=== PATIENT | female | born 1995 | race Caucasian/White ===

== ENCOUNTER 2019-05-24 19:20 | Emergency (ER) | payer OTHER ==
[~2019-05-24] VITALS: Ht 160 cm; Wt 54.5 kg
[2019-05-24 20:15] LABS: CALCIUM 9.2 mg/dL (8.5-10.1); CREATININE 0.8 mg/dL (0.6-1.0); GFR 88.1; POTASSIUM 4.5 mmol/L (3.5-5.1)
[2019-05-24 20:21] LABS: ALBUMIN 3.9 g/dL (3.4-5.0); ALBUMIN/GLOBULIN RATIO 1.2 (1.0-1.7); TOTAL BILIRUBIN 0.3 mg/dL (0.2-1.0); TOTAL PROTEIN 7.2 g/dL (6.4-8.2)
--- NOTE | 2019-05-24 20:29 | RAD ---
KNEE RIGHT 3V DATE: 05/24/2019 7:40 PM INDICATION: Trauma, pain COMPARISON: None. FINDINGS: Bones: There is no evidence of acute fracture or dislocation. Joints: The joint spaces are normal. There is no joint effusion. Miscellaneous: None. IMPRESSION: No evidence of acute fracture. Electronically signed by: Yassine Darby MD (05/24/2019 8:27 PM) [id number]
[2019-05-24 20:44] LABS: BASO # 0.1 x10^3/uL (0.0-0.2); BASO % 1 % (0-3); EOS # 0.2 x10^3/uL (0.0-0.7); EOS % 3 % (0-3); HEMATOCRIT 36.8 % (36.0-47.0); HEMOGLOBIN 12.2 g/dL (12.0-15.5); LYMPH # 1.1 x10^3/uL (1.0-4.8); LYMPH % 18 % (24-48); MEAN CORPUSCULAR HEMOGLOBIN 31 pg (25-35); MEAN CORPUSCULAR HGB CONC 33 g/dL (31-37); MEAN CORPUSCULAR VOLUME 92 fL (79-100); MONO # 0.5 x10^3/uL (0.0-1.1); MONO % 8 % (0-9); NEUT # 4.3 x10^3/uL (1.8-7.7); NEUT % 70 % (31-73); PLATELET COUNT 174 x10^3/uL (140-400); RED CELL DISTRIBUTION WIDTH 14.7 % (11.5-14.5); WHITE BLOOD COUNT 6.1 x10^3/uL (4.0-11.0)
[2019-05-24 21:45] LABS: BILIRUBIN,URINE NEGATIVE (NEG); CLARITY,URINE CLEAR; COLOR,URINE YELLOW; NITRITE,URINE NEGATIVE (NEG); PH,URINE 6.5; PROTEIN,URINE NEGATIVE (NEG-TRACE); UROBILINOGEN,URINE 0.2 mg/dL (0.2 mg/dL)
[2019-05-24 21:56] LABS: BACTERIA,URINE 0 /HPF (0-FEW); RBC,URINE RARE /HPF (0-2); SQUAMOUS EPITHELIAL CELL,UR MOD /LPF; WBC,URINE RARE /HPF (0-4)
[2019-05-24 21:59] LABS: AMPHETAMINE/METHAMPHETAMINE NEG (NEG); BARBITURATES NEG (NEG); BENZODIAZEPINES POS (NEG); CANNABINOIDS POS (NEG); COCAINE NEG (NEG); METHADONE NEG (NEG); OPIATES NEG (NEG); PHENCYCLIDINE NEG (NEG)
--- NOTE | 2019-05-24 22:17 | PHYS DOC ---
Past Medical History Past Medical History: Seizure Additional Past Surgical Histo: Unknown Smoking Status: Unknown if ever smoked Alcohol Use: None Additional Information: Unknown, sedated Social History Narrative: Unknown sedated Adult General Chief Complaint Chief Complaint: SEIZURE HPI HPI Patient is a 23 year old female with history of epilepsy currently off medications due to lack of employment sources who presents with this generalized seizure episode. Patient's is currently staying with friends and Kelin Begum who contacted EMS. On their arrival, the patient had tonic-clonic and was unresponsive. 10 mg of IM Versed given by EMS. Patient sedated/postictal on ED arrival. No seizure activity witnessed. History is limited due to the patient's presentation. [] Review of Systems Review of Systems Review of systems as per history of present illness. All other review symptoms are negative. All other systems were reviewed and found to be within normal limits, except as documented in this note. Allergies Allergies Allergies Coded Allergies Type Severity Reaction Last Updated Verified No Known Drug Allergies 05/24/19 No Physical Exam Physical Exam Constitutional: Obtunded, alerts to tactile stimulation.. [] HENT: Normocephalic, atraumatic, bilateral external ears normal, oropharynx mo ist, nose normal. [] Eyes: PERRLA, EOMI, conjunctiva normal. [] Neck: Normal range of motion. [] Cardiovascular: Bradycardia, regular rhythm. [] Lungs & Thorax: Bilateral breath sounds clear to auscultation. [] Abdomen: Bowel sounds normal, soft. [] Skin: Warm, dry. [] Back: No tenderness. [] Extremities: No tenderness. [] Neurologic: Obtunded, spontaneous movement of extremities. [] Psychologic: Affect normal, judgement normal, mood normal. [] Current Patient Data Vital Signs Vital Signs Date Time Temp Pulse Resp B/P (MAP) Pulse Ox O2 Delivery O2 Flow Rate FiO2 05/24/19 20:44 54 16 98/62 (74) 100 Room Air 05/24/19 19:22 97.6 97.6 Lab Values Laboratory Tests Test 05/24/19 19:55 05/24/19 20:35 05/24/19 21:38 Sodium Level 141 mmol/L (136-145) Potassium Level 4.5 mmol/L (3.5-5.1) Chloride Level 104 mmol/L (98-107) Carbon Dioxide Level 24 mmol/L (21-32) Anion Gap 13 (6-14) Blood Urea Nitrogen 9 mg/dL (7-20) Creatinine 0.8 mg/dL (0.6-1.0) Estimated GFR (Cockcroft-Gault) 88.1 BUN/Creatinine Ratio 11 (6-20) Glucose Level 83 mg/dL (70-99) Calcium Level 9.2 mg/dL (8.5-10.1) Total Bilirubin 0.3 mg/dL (0.2-1.0) Aspartate Amino Transferase (AST) 11 U/L (15-37) L Alanine Aminotransferase (ALT) 17 U/L (14-59) Alkaline Phosphatase 52 U/L (46-116) Troponin I Quantitative < 0.017 ng/mL (0.000-0.055) NC-Fzx-[id number]-Type Natriuretic Peptide 48 pg/mL (0-124) Total Protein 7.2 g/dL (6.4-8.2) Albumin 3.9 g/dL (3.4-5.0) Albumin/Globulin Ratio 1.2 (1.0-1.7) Ethyl Alcohol Level < 10 mg/dL (0-10) White Blood Count 6.1 x10^3/uL (4.0-11.0) Red Blood Count 4.00 x10^6/uL (3.50-5.40) Hemoglobin 12.2 g/dL (12.0-15.5) Hematocrit 36.8 % (36.0-47.0) Mean Corpuscular Volume 92 fL (79-100) Mean Corpuscular Hemoglobin 31 pg (25-35) Mean Corpuscular Hemoglobin Concent 33 g/dL (31-37) Red Cell Distribution Width 14.7 % (11.5-14.5) H Platelet Count 174 x10^3/uL (140-400) Neutrophils (%) (Auto) 70 % (31-73) Lymphocytes (%) (Auto) 18 % (24-48) L Monocytes (%) (Auto) 8 % (0-9) Eosinophils (%) (Auto) 3 % (0-3) Basophils (%) (Auto) 1 % (0-3) Neutrophils # (Auto) 4.3 x10^3/uL (1.8-7.7) Lymphocytes # (Auto) 1.1 x10^3/uL (1.0-4.8) Monocytes # (Auto) 0.5 x10^3/uL (0.0-1.1) Eosinophils # (Auto) 0.2 x10^3/uL (0.0-0.7) Basophils # (Auto) 0.1 x10^3/uL (0.0-0.2) Urine Collection Type U cath Urine Color Yellow Urine Clarity Clear Urine pH 6.5 Urine Specific [place] 1.010 Urine Protein Negative mg/dL (NEG-TRACE) Urine Glucose (UA) Negative mg/dL (NEG) Urine Ketones (Stick) Negative mg/dL (NEG) Urine Blood Negative (NEG) Urine Nitrite Negative (NEG) Urine Bilirubin Negative (NEG) Urine Urobilinogen Dipstick 0.2 mg/dL (0.2 mg/dL) Urine Leukocyte Esterase Negative (NEG) Urine RBC Rare /HPF (0-2) Urine WBC Rare /HPF (0-4) Urine Squamous Epithelial Cells Mod /LPF Urine Transitional Epithelial Cells Few /LPF Urine Bacteria 0 /HPF (0-FEW) Urine Opiates Screen Neg (NEG) Urine Methadone Screen Neg (NEG) Urine Barbiturates Neg (NEG) Urine Phencyclidine Screen Neg (NEG) Urine Amphetamine/Methamphetamine Neg (NEG) Urine Benzodiazepines Screen Pos (NEG) Urine Cocaine Screen Neg (NEG) Urine Cannabinoids Screen Pos (NEG) Urine Ethyl Alcohol Neg (NEG) Laboratory Tests 05/24/19 20:35 Laboratory Tests 05/24/19 19:55 EKG EKG [EKG: reviewed] Radiology/Procedures Radiology/Procedures [] Course & Med Decision Making Course & Med Decision Making Pertinent Labs and Imaging studies reviewed. (See chart for details) [Patient fully recovered from postictal/sedated edition and is a and O 4. Denies recent illness or precipitating seizure event but states she has been off medication for several weeks due to lack of resources. This is the first seizure has had since been off medication. Percocet given prior to ED arrival. Also noted to be bradycardic and mildly hypotensive in ED. She states she has been told that her heart rate is typically in the 50s. She is not on any medications that would contribute to this. Given patient's lack of resources and need for occasions, is recommended that she meets with an outpatient manager social services to assist her in applying for disability. In the meantime, she is encouraged to follow-up with family friends her show resources and doing her current prescriptions. She is discharged home in stable condition. Felicita Disclaimer Felicita Disclaimer This electronic medical record was generated, in whole or in part, using a voice recognition dictation system. Departure Departure Impression: Primary Impression: Noncompliance with medication regimen Additional Impression: Seizure, epileptic Disposition: 01 HOME, SELF-CARE Condition: STABLE Patient Instructions: Seizure, Adult, [id number] Additional Instructions: Please fill prescription seizure medication as soon as possible. Follow up with neurologist for further management of epilepsy and manager social services for assistance with disability application. Problem Qualifiers SHELBY HORTA DO May 24, 2019 22:17
[2019-05-24 22:29] VITALS: BP 85/58
[2019-05-24] MEDS ORDERED: ONDANSETRON PF 4 MG/2 ML VIAL. IV PRN (22:45)
--- NOTE | 2019-05-25 06:44 | EKG ---
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
[2019-05-25] MEDS ORDERED: levETIRAcetam 1,000 MG in IV DEXTROSE 5% 100ML 100 ML IV SCH (09:00)
== END 2019-05-24 22:45 | disposition home or self-care (01) ==
LOC: ER 19:20
DX: G40.909 Epilepsy, unspecified, not intractable, without status epilepticus (principal); M25.561 Pain in right knee; Z91.14 Patient's other noncompliance with medication regimen
CPT/HCPCS: 36415; 73562; 80053; 80307; 81001; 83880; 84484; 85025; 93005; 99285; G0480

== ENCOUNTER 2019-05-25 00:50 | Inpatient (IN) | payer OTHER ==
[~2019-05-25] VITALS: Ht 157.5 cm; Wt 67.5 kg
[2019-05-25] MEDS ORDERED: levETIRAcetam 1,000 MG in IV DEXTROSE 5% 100ML 100 ML IV ONE (01:30)
[2019-05-25] MEDS ORDERED: ONDANSETRON PF 4 MG/2 ML VIAL. IVP ONE (01:30)
[2019-05-25] MEDS ORDERED: MORPHINE SULFATE 4 MG/ML VIAL. IV/SQ ONE (01:30)
[2019-05-25 01:52] LABS: BASO # 0.1 x10^3/uL (0.0-0.2); BASO % 1 % (0-3); EOS # 0.2 x10^3/uL (0.0-0.7); EOS % 2 % (0-3); HEMATOCRIT 40.6 % (36.0-47.0); HEMOGLOBIN 13.1 g/dL (12.0-15.5); LYMPH # 2.9 x10^3/uL (1.0-4.8); LYMPH % 24 % (24-48); MEAN CORPUSCULAR HEMOGLOBIN 30 pg (25-35); MEAN CORPUSCULAR HGB CONC 32 g/dL (31-37); MEAN CORPUSCULAR VOLUME 94 fL (79-100); MONO # 0.9 x10^3/uL (0.0-1.1); MONO % 7 % (0-9); NEUT # 8.1 x10^3/uL (1.8-7.7); NEUT % 66 % (31-73); PLATELET COUNT 186 x10^3/uL (140-400); RED BLOOD COUNT 4.33 x10^6/uL (3.50-5.40); RED CELL DISTRIBUTION WIDTH 14.6 % (11.5-14.5); WHITE BLOOD COUNT 12.2 x10^3/uL (4.0-11.0)
[2019-05-25 01:59] LABS: CALCIUM 9.3 mg/dL (8.5-10.1); CREATININE 0.9 mg/dL (0.6-1.0); GFR 76.9; POTASSIUM 4.4 mmol/L (3.5-5.1)
[2019-05-25 02:04] LABS: ALBUMIN 3.9 g/dL (3.4-5.0); ALBUMIN/GLOBULIN RATIO 1.1 (1.0-1.7); TOTAL BILIRUBIN 0.4 mg/dL (0.2-1.0); TOTAL PROTEIN 7.3 g/dL (6.4-8.2)
--- NOTE | 2019-05-25 03:14 | PHYS DOC ---
Past Medical History Past Medical History: Seizure Additional Past Surgical Histo: Unknown Smoking Status: Unknown if ever smoked Alcohol Use: None Adult General Chief Complaint Chief Complaint: SEIZURE HPI HPI Patient is a 23 year old seen in emergency department earlier this evening for seizure episode of medication noncompliance who presents with witnessed seizure prior to ED arrival. Patient reportedly fell hitting head. Friends contacted EMS. Patient postictal upon EMS arrival. No medications given. Patient was initially postictal in the ED but then had witnessed tonic-clonic seizure. Ativan and Keppra given. Will admit to the hospital service for further evaluation and treatment Review of Systems Review of Systems Review symptoms as per history of present illness. All other review symptoms are negative. All other systems were reviewed and found to be within normal limits, except as documented in this note. Current Medications Current Medications Current Medications Medications (Trade) Dose Ordered Sig/Samuel Start Time Stop Time Status Last Admin Dose Admin Levetiracetam 1000 mg/Dextrose 110 ml @ 440 mls/hr 1X ONCE 05/25/19 01:30 05/25/19 01:44 DC 05/25/19 02:10 440 MLS/HR Lorazepam (Ativan Inj) 2 mg 1X ONCE 05/25/19 02:15 05/25/19 02:16 DC Morphine Sulfate (Morphine Sulfate) 4 mg 1X ONCE 05/25/19 01:30 05/25/19 01:31 DC Ondansetron HCl (Zofran) 4 mg 1X ONCE 05/25/19 01:30 05/25/19 01:31 DC Allergies Allergies Allergies Coded Allergies Type Severity Reaction Last Updated Verified No Known Drug Allergies 05/24/19 No Physical Exam Physical Exam Constitutional: Postictal, unable to follow commands[] HENT: Normocephalic, atraumatic, bilateral external ears normal, oropharynx moist, nose normal. [] Eyes: Pulse dilated, equally round and reactive, no nystagmus. [] Neck: Normal range of motion. [] Cardiovascular:Heart rate regular rhythm, no murmur. [] Lungs & Thorax: Bilateral breath sounds clear to auscultation. [] Abdomen: Bowel sounds normal, soft, no tenderness. [] Skin: Warm, dry, no erythema. [] Extremities: No deformities[] Neurologic: Obtunded, withdrawals to pain. [] Current Patient Data Lab Values Laboratory Tests Test 05/25/19 01:40 White Blood Count 12.2 x10^3/uL (4.0-11.0) H Red Blood Count 4.33 x10^6/uL (3.50-5.40) Hemoglobin 13.1 g/dL (12.0-15.5) Hematocrit 40.6 % (36.0-47.0) Mean Corpuscular Volume 94 fL (79-100) Mean Corpuscular Hemoglobin 30 pg (25-35) Mean Corpuscular Hemoglobin Concent 32 g/dL (31-37) Red Cell Distribution Width 14.6 % (11.5-14.5) H Platelet Count 186 x10^3/uL (140-400) Neutrophils (%) (Auto) 66 % (31-73) Lymphocytes (%) (Auto) 24 % (24-48) Monocytes (%) (Auto) 7 % (0-9) Eosinophils (%) (Auto) 2 % (0-3) Basophils (%) (Auto) 1 % (0-3) Neutrophils # (Auto) 8.1 x10^3/uL (1.8-7.7) H Lymphocytes # (Auto) 2.9 x10^3/uL (1.0-4.8) Monocytes # (Auto) 0.9 x10^3/uL (0.0-1.1) Eosinophils # (Auto) 0.2 x10^3/uL (0.0-0.7) Basophils # (Auto) 0.1 x10^3/uL (0.0-0.2) Maternal Serum HCG Beta Subunit < 1 mIU/mL (0-5) Sodium Level 140 mmol/L (136-145) Potassium Level 4.4 mmol/L (3.5-5.1) Chloride Level 101 mmol/L (98-107) Carbon Dioxide Level 19 mmol/L (21-32) L Anion Gap 20 (6-14) H Blood Urea Nitrogen 9 mg/dL (7-20) Creatinine 0.9 mg/dL (0.6-1.0) Estimated GFR (Cockcroft-Gault) 76.9 BUN/Creatinine Ratio 10 (6-20) Glucose Level 104 mg/dL (70-99) H Calcium Level 9.3 mg/dL (8.5-10.1) Total Bilirubin 0.4 mg/dL (0.2-1.0) Aspartate Amino Transferase (AST) 14 U/L (15-37) L Alanine Aminotransferase (ALT) 14 U/L (14-59) Alkaline Phosphatase 55 U/L (46-116) Total Protein 7.3 g/dL (6.4-8.2) Albumin 3.9 g/dL (3.4-5.0) Albumin/Globulin Ratio 1.1 (1.0-1.7) Laboratory Tests 05/25/19 01:40 Laboratory Tests 05/25/19 01:40 EKG EKG [] Radiology/Procedures Radiology/Procedures [CT head: Pending] Course & Med Decision Making Course & Med Decision Making Pertinent Labs and Imaging studies reviewed. (See chart for details) [Ativan and Keppra given. Patient remains post ictal/sedated, vital signs stable. Will admit to the hospitalist service with neurology consult.] Dragon Disclaimer Dragon Disclaimer This electronic medical record was generated, in whole or in part, using a voice recognition dictation system. Departure Departure Impression: Primary Impression: Seizure Additional Impression: Epilepsy Disposition: 09 ADMITTED INPATIENT Condition: STABLE Referrals: UNKNOWN PCP NAME (PCP) Problem Qualifiers SHELBY HORTA DO May 25, 2019 03:14
[2019-05-25 03:30] VITALS: BP 106/64
--- NOTE | 2019-05-25 03:43 | NUR ---
Pt to room 646 from ED at 0325. Pt postictal and unable to answer admission questions at this time. Bed alarm set, bed rails up x3 and padded, call light within reach. Will complete admission when pt alert.
--- NOTE | 2019-05-25 03:50 | RAD ---
INDICATION: Head injury COMPARISON: None. TECHNIQUE: Axial CT images obtained through the head. One or more of the following individualized dose reduction techniques were utilized for this examination: 1. Automated exposure control; 2. Adjustment of the mA and/or kV according to patient size; 3. Use of iterative reconstruction technique. FINDINGS: Nasal septal deviation to the right. Small amount of fluid in the right maxillary sinus. There are some regions of low density identified which are more than typically seen for the patient's age. This includes within the right frontal region as well as adjacent to the right lateral ventricle. There is also some volume loss in the left temporal region. A definite acute hemorrhage is not seen. Partial visualization of odontogenic disease IMPRESSION: * There are some regions of low density seen which are more than typically seen for the patient's age. This could be secondary to causes such as gliosis from prior injury, chronic small vessel ischemic disease, demyelination or migraine but would consider obtaining an MRI to further assess and ensure that this is not secondary to edema from an acute cause. * There is also volume loss seen in the left temporal region with encephalomalacia. Would correlate with history of insult to the region. Electronically signed by: Aj Leslie MD (05/25/2019 3:47 AM) [id number]
[2019-05-25] MEDS ORDERED: INFLUENZA VAX SCREEN BY RX. MC PRN (06:00)
[2019-05-25] MEDS ORDERED: ACETAMINOPHEN 325 MG TABLET. PO PRN (06:45)
[2019-05-25] MEDS ORDERED: ONDANSETRON PF 4 MG/2 ML VIAL. IV PRN (06:45)
[2019-05-25 07:49] VITALS: BP 99/52
[2019-05-25] MEDS: levETIRAcetam 1,000 MG in IV DEXTROSE 5% 100ML 100 ML IV SCH ×2 (09:08→21:00)
--- NOTE | 2019-05-25 09:50 | PDOC1 ---
History and Physical Date of Admission Date of Admission 05/25/2019 Identification/Chief Complaint Chief Complaint Seizure History of Present Illness History of Present Illness Patient is a 23-year-old female with known seizure disorder who was in her usual state of health until being brought by EMS services to the emergency department. History is from review off ER documentation given that the patient the present time is somnolent. The patient is unable to provide any information she does withdrawal to painful stimuli but is not able to interact with me during my visit. This has been the case ever since he was admitted to the hospital. She has received benzodiazepines in the emergency department since she had a witnessed tonic-clonic Documentation reflects the patient has not been compliant with her medications. Unclear if she has other medical history she is nevertheless wearing a congested not all heart disease awareness bracelet no rashes or lesions were noted on her physical exam patient is being admitted for further evaluation neurology consultation has been requested no needs voiced by nursing staff at the present time ER documentation of been reviewed and copied below: [facility] [id number] [place], [place] [phone] Emergency Room Patient: JARVIS MONTOYA Acct:[id number] Unit: [id number] : 1995 Loc: [address] [place] [address] Room/ Bed: 646-1 Age/Sex: 23 / F ADM Status: ADM IN ADM Date: 05/25/19 Past Medical History Past Medical History: Seizure Additional Past Surgical Histo: Unknown Smoking Status: Unknown if ever smoked Alcohol Use: None Adult General Chief Complaint Chief Complaint: SEIZURE HPI HPI Patient is a 23 year old seen in emergency department earlier this evening for seizure episode of medication noncompliance who presents with witnessed seizure prior to ED arrival. Patient reportedly fell hitting head. Friends contacted [facility] Patient postictal upon EMS arrival. No medications given. Patient was initially postictal in the ED but then had witnessed tonic-clonic seizure. Ativan and Keppra given. Will admit to the hospital service for further evaluation and treatment Past Medical History CENTRAL NERVOUS SYSTEM: Seizure Current Medications Current Medications Current Medications Medications (Trade) Dose Ordered Sig/Samuel Start Time Stop Time Status Last Admin Dose Admin Acetaminophen (Tylenol) 650 mg PRN Q4HRS PRN 05/25/19 06:45 Info (FLU VACCINE SCREEN per RX) 1 each PRN DAILY PRN 05/25/19 06:00 Levetiracetam 1000 mg/Dextrose 110 ml @ 440 mls/hr Q12HR 05/25/19 09:00 05/25/19 09:08 440 MLS/HR Lorazepam (Ativan Inj) 2 mg PRN Q4HRS PRN 05/25/19 06:45 Morphine Sulfate (Morphine Sulfate) 4 mg 1X ONCE 05/25/19 01:30 05/25/19 01:31 DC Ondansetron HCl (Zofran) 4 mg PRN Q4HRS PRN 05/25/19 06:45 Allergies Allergies Allergies Coded Allergies Type Severity Reaction Last Updated Verified No Known Drug Allergies 05/24/19 No ROS Review of System Unable to obtain since the patient is not cooperating Physical Exam Physical Exam Gen.: well-developed well-nourished in no apparent distress Head: Normal shape atraumatic Eyes: Pupils equal reactive to light and accommodation, normal conjunctivae and lids Ears: Normal shape Nose: Normal shape no trauma Mouth: No exudates of the back of throat no thrush no lesions Neck: Supple no JVD no carotid bruit or lymphadenopathy no thyromegaly Chest: Lungs clear to auscultation with good inspiratory effort no crackles rales or rhonchi Cardiovascular: S1-S2 regular rhythm no murmurs gallops or rubs Abdomen: Bowel sounds present soft nontender no hepatosplenomegaly appreciated sign Extremities: No clubbing no cyanosis no edema peripheral pulses palpated bilaterally Neurological: Somnolent cranial nerves II-12 grossly intact no motor or sensory deficits appreciated Psych: Unable to assess Vitals Vitals Vital Signs Date Time Temp Pulse Resp B/P (MAP) Pulse Ox O2 Delivery O2 Flow Rate FiO2 05/25/19 07:49 97.6 61 16 99/52 (68) 97 Room Air 97.6 05/25/19 01:55 2.0 Labs Labs Laboratory Tests Test 05/25/19 01:40 White Blood Count 12.2 x10^3/uL (4.0-11.0) Red Blood Count 4.33 x10^6/uL (3.50-5.40) Hemoglobin 13.1 g/dL (12.0-15.5) Hematocrit 40.6 % (36.0-47.0) Mean Corpuscular Volume 94 fL (79-100) Mean Corpuscular Hemoglobin 30 pg (25-35) Mean Corpuscular Hemoglobin Concent 32 g/dL (31-37) Red Cell Distribution Width 14.6 % (11.5-14.5) Platelet Count 186 x10^3/uL (140-400) Neutrophils (%) (Auto) 66 % (31-73) Lymphocytes (%) (Auto) 24 % (24-48) Monocytes (%) (Auto) 7 % (0-9) Eosinophils (%) (Auto) 2 % (0-3) Basophils (%) (Auto) 1 % (0-3) Neutrophils # (Auto) 8.1 x10^3/uL (1.8-7.7) Lymphocytes # (Auto) 2.9 x10^3/uL (1.0-4.8) Monocytes # (Auto) 0.9 x10^3/uL (0.0-1.1) Eosinophils # (Auto) 0.2 x10^3/uL (0.0-0.7) Basophils # (Auto) 0.1 x10^3/uL (0.0-0.2) Maternal Serum HCG Beta Subunit < 1 mIU/mL (0-5) Sodium Level 140 mmol/L (136-145) Potassium Level 4.4 mmol/L (3.5-5.1) Chloride Level 101 mmol/L (98-107) Carbon Dioxide Level 19 mmol/L (21-32) Anion Gap 20 (6-14) Blood Urea Nitrogen 9 mg/dL (7-20) Creatinine 0.9 mg/dL (0.6-1.0) Estimated GFR (Cockcroft-Gault) 76.9 BUN/Creatinine Ratio 10 (6-20) Glucose Level 104 mg/dL (70-99) Calcium Level 9.3 mg/dL (8.5-10.1) Total Bilirubin 0.4 mg/dL (0.2-1.0) Aspartate Amino Transf (AST/SGOT) 14 U/L (15-37) Alanine Aminotransferase (ALT/SGPT) 14 U/L (14-59) Alkaline Phosphatase 55 U/L (46-116) Total Protein 7.3 g/dL (6.4-8.2) Albumin 3.9 g/dL (3.4-5.0) Albumin/Globulin Ratio 1.1 (1.0-1.7) Laboratory Tests Test 05/25/19 01:40 White Blood Count 12.2 x10^3/uL (4.0-11.0) Red Blood Count 4.33 x10^6/uL (3.50-5.40) Hemoglobin 13.1 g/dL (12.0-15.5) Hematocrit 40.6 % (36.0-47.0) Mean Corpuscular Volume 94 fL (79-100) Mean Corpuscular Hemoglobin 30 pg (25-35) Mean Corpuscular Hemoglobin Concent 32 g/dL (31-37) Red Cell Distribution Width 14.6 % (11.5-14.5) Platelet Count 186 x10^3/uL (140-400) Neutrophils (%) (Auto) 66 % (31-73) Lymphocytes (%) (Auto) 24 % (24-48) Monocytes (%) (Auto) 7 % (0-9) Eosinophils (%) (Auto) 2 % (0-3) Basophils (%) (Auto) 1 % (0-3) Neutrophils # (Auto) 8.1 x10^3/uL (1.8-7.7) Lymphocytes # (Auto) 2.9 x10^3/uL (1.0-4.8) Monocytes # (Auto) 0.9 x10^3/uL (0.0-1.1) Eosinophils # (Auto) 0.2 x10^3/uL (0.0-0.7) Basophils # (Auto) 0.1 x10^3/uL (0.0-0.2) Maternal Serum HCG Beta Subunit < 1 mIU/mL (0-5) Sodium Level 140 mmol/L (136-145) Potassium Level 4.4 mmol/L (3.5-5.1) Chloride Level 101 mmol/L (98-107) Carbon Dioxide Level 19 mmol/L (21-32) Anion Gap 20 (6-14) Blood Urea Nitrogen 9 mg/dL (7-20) Creatinine 0.9 mg/dL (0.6-1.0) Estimated GFR (Cockcroft-Gault) 76.9 BUN/Creatinine Ratio 10 (6-20) Glucose Level 104 mg/dL (70-99) Calcium Level 9.3 mg/dL (8.5-10.1) Total Bilirubin 0.4 mg/dL (0.2-1.0) Aspartate Amino Transf (AST/SGOT) 14 U/L (15-37) Alanine Aminotransferase (ALT/SGPT) 14 U/L (14-59) Alkaline Phosphatase 55 U/L (46-116) Total Protein 7.3 g/dL (6.4-8.2) Albumin 3.9 g/dL (3.4-5.0) Albumin/Globulin Ratio 1.1 (1.0-1.7) VTE Prophylaxis Ordered VTE Prophylaxis Devices: Yes VTE Pharmacological Prophylaxi: No Assessment/Plan Assessment/Plan Seizure disorder After mental status secondary to the above Encephalopathy most likely secondary to benzodiazepines, we'll continue to follow response Leukocytosis which seems reactive CT scan report reviewed we will follow recommendations from neurology engineering consultant regarding these findings Plan Seizure precautions Joseph has been given Consult neurology Labs in the a.m. Reassess in the a.m. DVT prophylaxis with SCDs Further recommendations based on the clinical course CHARO COPELAND MD May 25, 2019 09:50
[2019-05-25 11:41] VITALS: BP 108/52
[2019-05-25 12:11] LABS: AMPHETAMINE/METHAMPHETAMINE NEG (NEG); BARBITURATES NEG (NEG); BENZODIAZEPINES POS (NEG); CANNABINOIDS POS (NEG); COCAINE NEG (NEG); METHADONE NEG (NEG); OPIATES NEG (NEG); PHENCYCLIDINE NEG (NEG)
--- NOTE | 2019-05-25 13:10 | NUR ---
SS following for discharge planning. SS reviewed pt chart. Pt is from home and is currently on room air. SS will continue to follow for discharge planning.
[2019-05-25 15:26] VITALS: BP 115/63
--- NOTE | 2019-05-25 16:22 | PDOC2 ---
NEUROLOGY CONSULT Date of Admission Date of Admission DATE: 05/25/19 TIME: 16:10 Reason for Consult Reason for Consult: IMPRESSION: Seizure. 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 Marijuana positive. RECOMMENDATIONS/PLAN: EEG. Brain MRI w/wo contrast with seizure protocol. Lab: see orders, including test. Continue Keppra. Seizure precaution. No driving x 6 months anytime after a seizure. History of Present Illness This is a 23-year-old female with known history of seizure reportedly since age 7. She was said in her usual state of health until being brought by EMS services to the emergency department due to seizure. She was somnolent. She has received Ativan and keppra in the emergency department since she had a witnessed tonic- clonic seizure. Documentation reflects the patient has not been compliant with her medications. Neurology consultation is requested. Past Medical History CENTRAL NERVOUS SYSTEM: Seizure PAST SURGERY HISTORY: No major surgery recently. ALLERGY: Unknown MEDICATIONS: Refer to [facility] HISTORY: Non contributory. SOCIAL HISTORY: Denies smoking, drinking, and illicit drug use, but marijuana was positive in system. REVIEW OF SYSTEMS: Constitutional: No malnutrition, weight loss, cachexia. Head: No traumatic brain or head injury. Skin: No edema, or rash. Ear: No infection. Eyes: No vision loss or color blindness. Nose: No bleeding or purulent discharges. Hearing: No hearing decrease. Neck: No injury. Breast: No history of cancer, masses,or discharges. Cardiac: No NM, arrhythmia. Pulmonary: No COPD. GI: No GI ulcer, GI bleeding, GERD. Urinary/genital: No dysuria, incontinence, urinary retention. Endocrinologic: No cousin face, craniofacial dysmorphism, polydactyly. Skeletomuscular: No muscular atrophy, deformity. Neurological: see HP. Psychiatric: Denies drug use/abuse. Otherwise, not [id number] review of systems. PHYSICAL EXAMINATION: General appearance is in subacute distress. HEENT: Normocephalic and nontraumatic. Eyes, nose, ears, and throat are unremarkable. Neck is supple. No lymphadenopathy. No crepitus. Cardiovascular: S1, S2, regular rate and rhythm. Pulmonary: Clear to auscultation bilaterally. Abdomen: Bowel sounds are positive. Abdomen is soft, nontender, and nondistended. Extremities: No rash, lesions, or edema. No restriction of range of motion NEUROLOGICAL EXAMINATION: Awake. Oriented to time, place and person, but reactions slow. PERRL. EOMI. CN: no focal findings. Muscle tone: within normal. Muscle strength: 5 DTR: 2 Plantar reflex: Flexor response bilaterally Gait: not examined while in bed. Sensory exam: no abnormal findings. No cerebellar signs elicited. F-T-N test accurate. Current Medications Current Medications Current Medications Lorazepam (Ativan Inj) 1 mg 1X ONCE IVP ; Start 05/25/19 at 01:30; Stop 05/25/19 at 02:14; Status DC Levetiracetam 1000 mg/Dextrose 110 ml @ 440 mls/hr 1X ONCE IV Last administered on 05/25/19at 02:10; Start 05/25/19 at 01:30; Stop 05/25/19 at 01:44; Status DC Morphine Sulfate (Morphine Sulfate) 4 mg 1X ONCE IV/SQ ; Start 05/25/19 at 01:30; Stop 05/25/19 at 01:31; Status DC Ondansetron HCl (Zofran) 4 mg 1X ONCE IVP ; Start 05/25/19 at 01:30; Stop 05/25/19 at 01:31; Status DC Lorazepam (Ativan Inj) 2 mg 1X ONCE IVP Last administered on 05/25/19at 02:16; Start 05/25/19 at 02:15; Stop 05/25/19 at 02:16; Status DC Lorazepam (Ativan Inj) 2 mg 1X ONCE IVP ; Start 05/25/19 at 02:15; Stop 05/25/19 at 02:16; Status DC Levetiracetam 1000 mg/Dextrose 110 ml @ 440 mls/hr Q12HR IV Last administered on 05/25/19at 09:08; Start 05/25/19 at 09:00 Lorazepam (Ativan Inj) 2 mg PRN Q4HRS PRN IVP ANXIETY / AGITATION Last administered on 05/25/19at 14:20; Start 05/25/19 at 02:45 Info (FLU VACCINE SCREEN per RX) 1 each PRN DAILY PRN MC SEE COMMENTS; Start 05/25/19 at 06:00; Status Cancel Ondansetron HCl (Zofran) 4 mg PRN Q4HRS PRN IV NAUSEA/VOMITING 1ST CHOICE; Start 05/25/19 at 06:45 Acetaminophen (Tylenol) 650 mg PRN Q4HRS PRN PO TEMP OVER 100.4F OR MILD PAIN; Start 05/25/19 at 06:45 Lorazepam (Ativan Inj) 2 mg PRN Q4HRS PRN IV seizure only; Start 05/25/19 at 06:45 Influenza Virus Vaccine Quadrival (Afluria Quad 2019-20 (3yr Up) Syringe) 0.5 ml ONCE ONCE VAX IM ; Start 05/26/19 at 09:00; Stop 05/26/19 at 09:01 Allergies Allergies: Allergies Coded Allergies Type Severity Reaction Last Updated Verified No Known Drug Allergies 05/24/19 No ROS Review of System The patient denies any associated fevers, chills, headache, ear pain, rhinorrhea, sore throat, stiff neck, productive cough, chest pain, shortness of breath, back or flank pain, abdominal pain, nausea, vomiting, diarrhea, constipation, dysuria, rash, numbness, weakness, tingling, incontinence, difficulty ambulating, or diaphoresis. Physical Exam Physical Exam General: Well developed, well nourished, no acute distress, well appearing HEENT: Pupils equally round and reactive to light, EOMI, no discharge, normal conjunctiva Neck: Supple, no nuchal rigidity, no JVD, trachea midline, no tenderness Cardiac: RRR, no murmurs, no gallops, no rubs Chest/Lungs: CTAB, no wheeze, no rhonchi, no crackles Abdomen: soft, non-distended, no guarding, no peritoneal signs, non-tender Back: No tenderness Extremities: no edema, pulses intact, non-tender,capillary refill <3 sec bilateral upper and lower extremities, Neuro: Alert and oriented x 4, no focal deficits, normal speech Vitals Vitals: Vital Signs Date Time Temp Pulse Resp B/P (MAP) Pulse Ox O2 Delivery O2 Flow Rate FiO2 05/25/19 15:26 97.9 72 18 115/63 (80) 99 Room Air 97.9 05/25/19 01:55 2.0 Labs Labs Laboratory Tests Test 05/25/19 01:40 05/25/19 11:35 White Blood Count 12.2 x10^3/uL (4.0-11.0) Red Blood Count 4.33 x10^6/uL (3.50-5.40) Hemoglobin 13.1 g/dL (12.0-15.5) Hematocrit 40.6 % (36.0-47.0) Mean Corpuscular Volume 94 fL (79-100) Mean Corpuscular Hemoglobin 30 pg (25-35) Mean Corpuscular Hemoglobin Concent 32 g/dL (31-37) Red Cell Distribution Width 14.6 % (11.5-14.5) Platelet Count 186 x10^3/uL (140-400) Neutrophils (%) (Auto) 66 % (31-73) Lymphocytes (%) (Auto) 24 % (24-48) Monocytes (%) (Auto) 7 % (0-9) Eosinophils (%) (Auto) 2 % (0-3) Basophils (%) (Auto) 1 % (0-3) Neutrophils # (Auto) 8.1 x10^3/uL (1.8-7.7) Lymphocytes # (Auto) 2.9 x10^3/uL (1.0-4.8) Monocytes # (Auto) 0.9 x10^3/uL (0.0-1.1) Eosinophils # (Auto) 0.2 x10^3/uL (0.0-0.7) Basophils # (Auto) 0.1 x10^3/uL (0.0-0.2) Maternal Serum HCG Beta Subunit < 1 mIU/mL (0-5) Sodium Level 140 mmol/L (136-145) Potassium Level 4.4 mmol/L (3.5-5.1) Chloride Level 101 mmol/L (98-107) Carbon Dioxide Level 19 mmol/L (21-32) Anion Gap 20 (6-14) Blood Urea Nitrogen 9 mg/dL (7-20) Creatinine 0.9 mg/dL (0.6-1.0) Estimated GFR (Cockcroft-Gault) 76.9 BUN/Creatinine Ratio 10 (6-20) Glucose Level 104 mg/dL (70-99) Calcium Level 9.3 mg/dL (8.5-10.1) Total Bilirubin 0.4 mg/dL (0.2-1.0) Aspartate Amino Transf (AST/SGOT) 14 U/L (15-37) Alanine Aminotransferase (ALT/SGPT) 14 U/L (14-59) Alkaline Phosphatase 55 U/L (46-116) Total Protein 7.3 g/dL (6.4-8.2) Albumin 3.9 g/dL (3.4-5.0) Albumin/Globulin Ratio 1.1 (1.0-1.7) Tumor Marker HCG <1 mIU/mL (.) Urine Opiates Screen Neg (NEG) Urine Methadone Screen Neg (NEG) Urine Barbiturates Neg (NEG) Urine Phencyclidine Screen Neg (NEG) Urine Amphetamine/Methamphetamine Neg (NEG) Urine Benzodiazepines Screen Pos (NEG) Urine Cocaine Screen Neg (NEG) Urine Cannabinoids Screen Pos (NEG) Urine Ethyl Alcohol Neg (NEG) Laboratory Tests Test 05/25/19 01:40 05/25/19 11:35 White Blood Count 12.2 x10^3/uL (4.0-11.0) Red Blood Count 4.33 x10^6/uL (3.50-5.40) Hemoglobin 13.1 g/dL (12.0-15.5) Hematocrit 40.6 % (36.0-47.0) Mean Corpuscular Volume 94 fL (79-100) Mean Corpuscular Hemoglobin 30 pg (25-35) Mean Corpuscular Hemoglobin Concent 32 g/dL (31-37) Red Cell Distribution Width 14.6 % (11.5-14.5) Platelet Count 186 x10^3/uL (140-400) Neutrophils (%) (Auto) 66 % (31-73) Lymphocytes (%) (Auto) 24 % (24-48) Monocytes (%) (Auto) 7 % (0-9) Eosinophils (%) (Auto) 2 % (0-3) Basophils (%) (Auto) 1 % (0-3) Neutrophils # (Auto) 8.1 x10^3/uL (1.8-7.7) Lymphocytes # (Auto) 2.9 x10^3/uL (1.0-4.8) Monocytes # (Auto) 0.9 x10^3/uL (0.0-1.1) Eosinophils # (Auto) 0.2 x10^3/uL (0.0-0.7) Basophils # (Auto) 0.1 x10^3/uL (0.0-0.2) Maternal Serum HCG Beta Subunit < 1 mIU/mL (0-5) Sodium Level 140 mmol/L (136-145) Potassium Level 4.4 mmol/L (3.5-5.1) Chloride Level 101 mmol/L (98-107) Carbon Dioxide Level 19 mmol/L (21-32) Anion Gap 20 (6-14) Blood Urea Nitrogen 9 mg/dL (7-20) Creatinine 0.9 mg/dL (0.6-1.0) Estimated GFR (Cockcroft-Gault) 76.9 BUN/Creatinine Ratio 10 (6-20) Glucose Level 104 mg/dL (70-99) Calcium Level 9.3 mg/dL (8.5-10.1) Total Bilirubin 0.4 mg/dL (0.2-1.0) Aspartate Amino Transf (AST/SGOT) 14 U/L (15-37) Alanine Aminotransferase (ALT/SGPT) 14 U/L (14-59) Alkaline Phosphatase 55 U/L (46-116) Total Protein 7.3 g/dL (6.4-8.2) Albumin 3.9 g/dL (3.4-5.0) Albumin/Globulin Ratio 1.1 (1.0-1.7) Tumor Marker HCG <1 mIU/mL (.) Urine Opiates Screen Neg (NEG) Urine Methadone Screen Neg (NEG) Urine Barbiturates Neg (NEG) Urine Phencyclidine Screen Neg (NEG) Urine Amphetamine/Methamphetamine Neg (NEG) Urine Benzodiazepines Screen Pos (NEG) Urine Cocaine Screen Neg (NEG) Urine Cannabinoids Screen Pos (NEG) Urine Ethyl Alcohol Neg (NEG) LEOPOLDO CRANE MD May 25, 2019 16:22
[2019-05-25 19:35] VITALS: BP 118/70
[2019-05-25 23:58] VITALS: BP 127/73
[2019-05-26 07:53] VITALS: BP 94/51
[2019-05-26] MEDS ORDERED: LAMO200T3 PO (08:35)
[2019-05-26] MEDS ORDERED: OXCA300T19 PO (08:35)
[2019-05-26] MEDS ORDERED: LAMO25TA5 PO (08:35)
[2019-05-26] MEDS ORDERED: LORA0.5T96 PO ×2 (08:35→12:15)
[2019-05-26] MEDS ORDERED: PROP40TA PO (08:35)
[2019-05-26] MEDS ORDERED: FLUO10CA14 PO (08:35)
[2019-05-26 08:50] LABS: CREATININE 0.6 mg/dL (0.6-1.0); GFR 122.8
[2019-05-26 08:52] LABS: BASO % 1 % (0-3); EOS # 0.2 x10^3/uL (0.0-0.7); EOS % 3 % (0-3); HEMATOCRIT 37.8 % (36.0-47.0); HEMOGLOBIN 12.6 g/dL (12.0-15.5); LYMPH # 1.7 x10^3/uL (1.0-4.8); LYMPH % 27 % (24-48); MEAN CORPUSCULAR HEMOGLOBIN 31 pg (25-35); MEAN CORPUSCULAR HGB CONC 33 g/dL (31-37); MEAN CORPUSCULAR VOLUME 92 fL (79-100); MONO # 0.6 x10^3/uL (0.0-1.1); MONO % 9 % (0-9); NEUT # 3.8 x10^3/uL (1.8-7.7); NEUT % 60 % (31-73); PLATELET COUNT 186 x10^3/uL (140-400); RED BLOOD COUNT 4.11 x10^6/uL (3.50-5.40); RED CELL DISTRIBUTION WIDTH 14.8 % (11.5-14.5); WHITE BLOOD COUNT 6.3 x10^3/uL (4.0-11.0)
[2019-05-26] MEDS: levETIRAcetam 1,000 MG in IV DEXTROSE 5% 100ML 100 ML IV SCH (09:00)
[2019-05-26] MEDS ORDERED: FLU VAX QS 2019-20 (36MOS+)/PF 0.5 ML SYRINGE. VAX IM ONE (09:00)
[2019-05-26 11:36] VITALS: BP 118/67
[2019-05-26 11:51] LABS: U PREG PATIENT NEGATIVE (NEG)
--- NOTE | 2019-05-26 12:21 | PDOC3 ---
Discharge Summary Visit Information Date of Admission: May 25, 2019 Date of Discharge: May 26, 2019 Brief Hospital Course Allergies Allergies Coded Allergies Type Severity Reaction Last Updated Verified No Known Drug Allergies 05/24/19 No Vital Signs Vital Signs Date Time Temp Pulse Resp B/P (MAP) Pulse Ox O2 Delivery O2 Flow Rate FiO2 05/26/19 11:36 97.4 66 16 118/67 (84) 98 Room Air 97.4 Lab Results Laboratory Tests Test 05/25/19 01:40 05/25/19 11:35 05/26/19 07:31 05/26/19 11:15 White Blood Count 12.2 x10^3/uL (4.0-11.0) 6.3 x10^3/uL (4.0-11.0) Red Blood Count 4.33 x10^6/uL (3.50-5.40) 4.11 x10^6/uL (3.50-5.40) Hemoglobin 13.1 g/dL (12.0-15.5) 12.6 g/dL (12.0-15.5) Hematocrit 40.6 % (36.0-47.0) 37.8 % (36.0-47.0) Mean Corpuscular Volume 94 fL (79-100) 92 fL (79-100) Mean Corpuscular Hemoglobin 30 pg (25-35) 31 pg (25-35) Mean Corpuscular Hemoglobin Concent 32 g/dL (31-37) 33 g/dL (31-37) Red Cell Distribution Width 14.6 % (11.5-14.5) 14.8 % (11.5-14.5) Platelet Count 186 x10^3/uL (140-400) 186 x10^3/uL (140-400) Neutrophils (%) (Auto) 66 % (31-73) 60 % (31-73) Lymphocytes (%) (Auto) 24 % (24-48) 27 % (24-48) Monocytes (%) (Auto) 7 % (0-9) 9 % (0-9) Eosinophils (%) (Auto) 2 % (0-3) 3 % (0-3) Basophils (%) (Auto) 1 % (0-3) 1 % (0-3) Neutrophils # (Auto) 8.1 x10^3/uL (1.8-7.7) 3.8 x10^3/uL (1.8-7.7) Lymphocytes # (Auto) 2.9 x10^3/uL (1.0-4.8) 1.7 x10^3/uL (1.0-4.8) Monocytes # (Auto) 0.9 x10^3/uL (0.0-1.1) 0.6 x10^3/uL (0.0-1.1) Eosinophils # (Auto) 0.2 x10^3/uL (0.0-0.7) 0.2 x10^3/uL (0.0-0.7) Basophils # (Auto) 0.1 x10^3/uL (0.0-0.2) 0.0 x10^3/uL (0.0-0.2) Maternal Serum HCG Beta Subunit < 1 mIU/mL (0-5) Sodium Level 140 mmol/L (136-145) 142 mmol/L (136-145) Potassium Level 4.4 mmol/L (3.5-5.1) 4.0 mmol/L (3.5-5.1) Chloride Level 101 mmol/L (98-107) 105 mmol/L (98-107) Carbon Dioxide Level 19 mmol/L (21-32) 30 mmol/L (21-32) Anion Gap 20 (6-14) 7 (6-14) Blood Urea Nitrogen 9 mg/dL (7-20) 6 mg/dL (7-20) Creatinine 0.9 mg/dL (0.6-1.0) 0.6 mg/dL (0.6-1.0) Estimated GFR (Cockcroft-Gault) 76.9 122.8 BUN/Creatinine Ratio 10 (6-20) Glucose Level 104 mg/dL (70-99) 82 mg/dL (70-99) Calcium Level 9.3 mg/dL (8.5-10.1) 9.0 mg/dL (8.5-10.1) Total Bilirubin 0.4 mg/dL (0.2-1.0) Aspartate Amino Transf (AST/SGOT) 14 U/L (15-37) Alanine Aminotransferase (ALT/SGPT) 14 U/L (14-59) Alkaline Phosphatase 55 U/L (46-116) Total Protein 7.3 g/dL (6.4-8.2) Albumin 3.9 g/dL (3.4-5.0) Albumin/Globulin Ratio 1.1 (1.0-1.7) Tumor Marker HCG <1 mIU/mL (.) Urine Opiates Screen Neg (NEG) Urine Methadone Screen Neg (NEG) Urine Barbiturates Neg (NEG) Urine Phencyclidine Screen Neg (NEG) Urine Amphetamine/Methamphetamine Neg (NEG) Urine Benzodiazepines Screen Pos (NEG) Urine Cocaine Screen Neg (NEG) Urine Cannabinoids Screen Pos (NEG) Urine Ethyl Alcohol Neg (NEG) Urine Test Negative (NEG) Laboratory Tests Test 05/26/19 07:31 05/26/19 11:15 White Blood Count 6.3 x10^3/uL (4.0-11.0) Red Blood Count 4.11 x10^6/uL (3.50-5.40) Hemoglobin 12.6 g/dL (12.0-15.5) Hematocrit 37.8 % (36.0-47.0) Mean Corpuscular Volume 92 fL (79-100) Mean Corpuscular Hemoglobin 31 pg (25-35) Mean Corpuscular Hemoglobin Concent 33 g/dL (31-37) Red Cell Distribution Width 14.8 % (11.5-14.5) Platelet Count 186 x10^3/uL (140-400) Neutrophils (%) (Auto) 60 % (31-73) Lymphocytes (%) (Auto) 27 % (24-48) Monocytes (%) (Auto) 9 % (0-9) Eosinophils (%) (Auto) 3 % (0-3) Basophils (%) (Auto) 1 % (0-3) Neutrophils # (Auto) 3.8 x10^3/uL (1.8-7.7) Lymphocytes # (Auto) 1.7 x10^3/uL (1.0-4.8) Monocytes # (Auto) 0.6 x10^3/uL (0.0-1.1) Eosinophils # (Auto) 0.2 x10^3/uL (0.0-0.7) Basophils # (Auto) 0.0 x10^3/uL (0.0-0.2) Sodium Level 142 mmol/L (136-145) Potassium Level 4.0 mmol/L (3.5-5.1) Chloride Level 105 mmol/L (98-107) Carbon Dioxide Level 30 mmol/L (21-32) Anion Gap 7 (6-14) Blood Urea Nitrogen 6 mg/dL (7-20) Creatinine 0.6 mg/dL (0.6-1.0) Estimated GFR (Cockcroft-Gault) 122.8 Glucose Level 82 mg/dL (70-99) Calcium Level 9.0 mg/dL (8.5-10.1) Urine Test Negative (NEG) Brief Hospital Course Ms. Natarajan is a 23 old female with known history of seizure disorder who was brought by EMS after presenting seizure-like activity while visiting family in the neighborhood. Patient usually has her care at [facility]. Apparently the patient unfortunately had not been able to renew her prescriptions and had been off her medications for at least a week. She was treated with Ativan in the emergency department and she was restarted on her home medications while inpatient. The patient was seen by neurology who recommended a brain MRI without contrast and with contrast. At the time of this note the brain MRI has not been performed. The patient does not exhibit any neurological deficits did not percent further seizure-like activity. Recommendations by our professional benefits sales consultant was to continue with Keppra nevertheless patient had been stable she relates to me for several years without a seizure episode. She has an appointment follow-up as reported by the patient but I have encourage her to call them and have a follow-up appointment within the next week if possible. She is in good spirits to be dismissed home and I have provided with refill of her prescriptions in order for her to stay seizure- free. Recommendation from neurologist was to not drive for next 6 months Signs and symptoms of alarm discussed prior to dismissal all concerns address to the best my abilities Gen.: well-developed well-nourished in no apparent distress Head: Normal shape atraumatic Eyes: Pupils equal reactive to light and accommodation, normal conjunctivae and lids Ears: Normal shape Nose: Normal shape no trauma Mouth: No exudates of the back of throat no thrush no lesions Neck: Supple no JVD no carotid bruit or lymphadenopathy no thyromegaly Chest: Lungs clear to auscultation with good inspiratory effort no crackles rales or rhonchi Cardiovascular: S1-S2 regular rhythm no murmurs gallops or rubs Abdomen: Bowel sounds present soft nontender no hepatosplenomegaly appreciated sign Extremities: No clubbing no cyanosis no edema peripheral pulses palpated bilaterally Neurological: Alert awake oriented in person time place and situation, cranial nerves II through XII intact, no motor or sensory deficits appreciated Psych: Appropriate mood, cooperative Discharge Information Condition at Discharge: Improved Follow Up: Weeks Disposition/Orders: D/C to Home Scheduled Fluoxetine Hcl (Fluoxetine Hcl) 10 Mg Capsule, 1 CAP PO DAILY for depression for 90 Days, #90 Ref 2 (Reported) Entered as Reported by: SURESH LIMA RN on 05/26/19834 Last Action: New Order on 05/26/19834 by SURESH LIMA RN Lamotrigine (Lamictal) 200 Mg Tablet, 200 MG PO BID for seizures for 90 Days, #180 (Reported) Entered as Reported by: SURESH LIMA RN on 05/26/19834 Last Taken: Unknown Dose on 05/13/19 Last Action: New Order on 05/26/19834 by SURESH LIMA RN Lamotrigine (Lamictal) 25 Mg Tablet, 1 TAB PO BID for seizures for 90 Days, #180 Ref 1 (Reported) Entered as Reported by: SURESH LIMA RN on 05/26/19834 Last Taken: Unknown Dose on 05/13/19 Last Action: New Order on 05/26/19834 by SURESH LIMA RN Lorazepam (Ativan) 0.5 Mg Tablet, 0.5 MG PO HS for agitation for 30 Days, #30 Prescribed by: CHARO COPELAND MD on 05/26/19 1215 Oxcarbazepine (Oxcarbazepine) 300 Mg Tablet, 1 TAB PO BID for seizures for 30 Days, #60 Ref 0 (Reported) Entered as Reported by: SURESH LIMA RN on 05/26/19834 Last Taken: Unknown Dose on 05/13/19 Last Action: New Order on 05/26/19834 by SURESH LIMA RN Propranolol Hcl (Propranolol Hcl) 40 Mg Tablet, 1 TAB PO BID for heart papitations for 90 Days, #180 Ref 5 (Reported) Entered as Reported by: SURESH LIMA RN on 05/26/19834 Last Taken: Unknown Dose on 05/13/19 Last Action: New Order on 05/26/19834 by LUIS TIDWELL HECTOR M MD May 26, 2019 12:21
[2019-05-26 15:08] VITALS: BP 122/57
--- NOTE | 2019-05-26 15:49 | NUR ---
Discharge Note: JARVIS MONTOYA Discharge instructions and discharge home medications reviewed with Patient and a copy given. All questions have been answered and understanding verbalized. The following instructions and handouts were given: The patient was advised to follow-up with her Neurologist at . Discontinued lines and drains: The patient pulled out the IV overnight. No IV lines were replaced. Catheter tip was intact. Patient discharged to home with self care via [facility].
--- NOTE | 2019-05-26 16:01 | PDOC ---
PROGRESS NOTES Assessment Assessment Seizure. 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 Marijuana positive. RECOMMENDATIONS/PLAN: EEG, out patient [place]. Brain MRI w/wo contrast with seizure protocol, cancelled due to her stimulator. Continue Keppra. Seizure precaution. No driving x 6 months anytime after a seizure. FU with her neurologist in . FU with PCP. History of Present Illness This is a 23-year-old female with known history of seizure reportedly since age 7. She was said in her usual state of health until being brought by EMS services to the emergency department due to seizure. She was somnolent. She has received Ativan and keppra in the emergency department since she had a witnessed tonic- clonic seizure. Documentation reflects the patient has not been compliant with her medications. Neurology consultation is requested. 05/26/19: No seizures since here. Past Medical History CENTRAL NERVOUS SYSTEM: Seizure PAST SURGERY HISTORY: No major surgery recently. ALLERGY: Unknown MEDICATIONS: Refer to [facility] FAMILY HISTORY: Non contributory. SOCIAL HISTORY: Denies smoking, drinking, and illicit drug use, but marijuana was positive in system. REVIEW OF SYSTEMS: Constitutional: No malnutrition, weight loss, cachexia. Head: No traumatic brain or head injury. Skin: No edema, or rash. Ear: No infection. Eyes: No vision loss or color blindness. Nose: No bleeding or purulent discharges. Hearing: No hearing decrease. Neck: No injury. Breast: No history of cancer, masses,or discharges. Cardiac: No [place], arrhythmia. Pulmonary: No COPD. GI: No GI ulcer, GI bleeding, GERD. Urinary/genital: No dysuria, incontinence, urinary retention. Endocrinologic: No cousin face, craniofacial dysmorphism, polydactyly. Skeletomuscular: No muscular atrophy, deformity. Neurological: see HP. Psychiatric: Denies drug use/abuse. Otherwise, not [id number] review of systems. PHYSICAL EXAMINATION: General appearance is in no acute distress. HEENT: Normocephalic and nontraumatic. Eyes, nose, ears, and throat are unremarkable. Neck is supple. No lymphadenopathy. No crepitus. Cardiovascular: S1, S2, regular rate and rhythm. Pulmonary: Clear to auscultation bilaterally. Abdomen: Bowel sounds are positive. Abdomen is soft, nontender, and nondistended. Extremities: No rash, lesions, or edema. No restriction of range of motion NEUROLOGICAL EXAMINATION: Awake. Oriented to time, place and person, but reactions slow. PERRL. EOMI. CN: no focal findings. Muscle tone: within normal. Muscle strength: 5 DTR: 2 Plantar reflex: Flexor response bilaterally Gait: Normal. Sensory exam: no abnormal findings. No cerebellar signs elicited. F-T-N test accurate. Objective Objective Vital Signs Date Time Temp Pulse Resp B/P (MAP) Pulse Ox O2 Delivery O2 Flow Rate FiO2 05/26/19 15:08 97.9 68 18 122/57 (78) 99 Room Air 97.9 Intake and Output 05/26/19 07:00 Intake Total 1150 ml Output Total 1 ml Balance 1149 ml Intake Oral 1150 ml Output Urine Total 1 ml # Voids 4 Vitals Signs Vitals VS - Last 72 Hours, by Label Date Time Temp Pulse Resp B/P (MAP) Pulse Ox O2 Delivery O2 Flow Rate FiO2 05/26/19 15:08 97.9 68 18 122/57 (78) 99 Room Air 97.9 05/26/19 11:36 97.4 66 16 118/67 (84) 98 Room Air 97.4 05/26/19 08:00 Room Air 05/26/19 07:53 97.7 81 16 94/51 (65) 98 Room Air 97.7 05/26/19 03:56 16 Room Air 05/25/19 23:58 98.2 64 16 127/73 (91) 99 Room Air 98.2 05/25/19 19:48 Room Air 05/25/19 19:35 98.3 96 16 118/70 (86) 100 Room Air 98.3 05/25/19 15:26 97.9 72 18 115/63 (80) 99 Room Air 97.9 05/25/19 11:41 97.8 68 16 108/52 (70) 98 Room Air 97.8 05/25/19 08:00 Room Air 05/25/19 07:49 97.6 61 16 99/52 (68) 97 Room Air 97.6 Laboratory Laboratory Laboratory Tests Test 05/26/19 07:31 05/26/19 11:15 White Blood Count 6.3 x10^3/uL (4.0-11.0) Red Blood Count 4.11 x10^6/uL (3.50-5.40) Hemoglobin 12.6 g/dL (12.0-15.5) Hematocrit 37.8 % (36.0-47.0) Mean Corpuscular Volume 92 fL (79-100) Mean Corpuscular Hemoglobin 31 pg (25-35) Mean Corpuscular Hemoglobin Concent 33 g/dL (31-37) Red Cell Distribution Width 14.8 % (11.5-14.5) Platelet Count 186 x10^3/uL (140-400) Neutrophils (%) (Auto) 60 % (31-73) Lymphocytes (%) (Auto) 27 % (24-48) Monocytes (%) (Auto) 9 % (0-9) Eosinophils (%) (Auto) 3 % (0-3) Basophils (%) (Auto) 1 % (0-3) Neutrophils # (Auto) 3.8 x10^3/uL (1.8-7.7) Lymphocytes # (Auto) 1.7 x10^3/uL (1.0-4.8) Monocytes # (Auto) 0.6 x10^3/uL (0.0-1.1) Eosinophils # (Auto) 0.2 x10^3/uL (0.0-0.7) Basophils # (Auto) 0.0 x10^3/uL (0.0-0.2) Sodium Level 142 mmol/L (136-145) Potassium Level 4.0 mmol/L (3.5-5.1) Chloride Level 105 mmol/L (98-107) Carbon Dioxide Level 30 mmol/L (21-32) Anion Gap 7 (6-14) Blood Urea Nitrogen 6 mg/dL (7-20) Creatinine 0.6 mg/dL (0.6-1.0) Estimated GFR (Cockcroft-Gault) 122.8 Glucose Level 82 mg/dL (70-99) Calcium Level 9.0 mg/dL (8.5-10.1) Urine Test Negative (NEG) Medication Medications Current Medications Influenza Virus Vaccine Quadrival (Afluria Quad 2018- (3yr Up) Syringe) 0.5 ml ONCE ONCE VAX IM ; Start 05/26/19 at 09:00; Stop 05/26/19 at 09:01; Status DC Lorazepam (Ativan Inj) 2 mg PRN Q4HRS PRN IM/IV ANXIETY / AGITATION; Start 05/25/19 at 19:30 Lorazepam (Ativan Inj) 2 mg PRN Q4HRS PRN IM/IV seizure only; Start 05/25/19 at 19:30; Status UNV Comment Review of Relevant I have reviewed the following items bertram (where applicable) has been applied. LEOPOLDO CRANE MD May 26, 2019 16:01
== END 2019-05-26 16:00 | disposition home or self-care (01) | DRG 101 ==
LOC: ER 00:50 → 6 SOUTH 02:44
PROVIDERS: ADMIT Internal Medicine; ATTEND Internal Medicine
DX: G40.89 Other seizures (principal); G93.89 Other specified disorders of brain; Z91.14 Patient's other noncompliance with medication regimen; Z79.899 Other long term (current) drug therapy
CPT/HCPCS: 36415; 70450; 80048; 80053; 80307; 81025; 84702; 85025; 95816; 96365; 96375; J1953; J2060; 84704; 99285-25; G0378

== ENCOUNTER 2021-02-26 15:10 | Observation (INO) | payer SELFPAY ==
[~2021-02-26] VITALS: Ht 157.5 cm; Wt 71.8 kg
[~2021-02-26 15:10] MED LIST: FLUO10CA17 PO; LAMO200T3 PO; LAMO25TA5 PO; LORA0.5T96 PO; OXCA300T19 PO; PROP40TA PO
[2021-02-26] MEDS ORDERED: ONDANSETRON PF 4 MG/2 ML VIAL. IVP ONE (15:30)
[2021-02-26] MEDS ORDERED: IV NORMAL SALINE 1000ML BAG 1,000 ML IV SCH (15:30)
[2021-02-26 15:52] LABS: BASO % 0 % (0-3); EOS % 0 % (0-3); HEMATOCRIT 37.6 % (36.0-47.0); HEMOGLOBIN 12.4 g/dL (12.0-15.5); LYMPH # 1.2 x10^3/uL (1.0-4.8); LYMPH % 12 % (24-48); MEAN CORPUSCULAR HEMOGLOBIN 30 pg (25-35); MEAN CORPUSCULAR HGB CONC 33 g/dL (31-37); MEAN CORPUSCULAR VOLUME 91 fL (79-100); MONO # 0.3 x10^3/uL (0.0-1.1); MONO % 3 % (0-9); NEUT # 8.7 x10^3/uL (1.8-7.7); NEUT % 85 % (31-73); PLATELET COUNT 289 x10^3/uL (140-400); RED BLOOD COUNT 4.15 x10^6/uL (3.50-5.40); RED CELL DISTRIBUTION WIDTH 14.5 % (11.5-14.5); WHITE BLOOD COUNT 10.2 x10^3/uL (4.0-11.0)
[2021-02-26 16:03] LABS: CALCIUM 9.2 mg/dL (8.5-10.1); CREATININE 0.5 mg/dL (0.6-1.0); GFR 149.1
--- NOTE | 2021-02-26 16:07 | RAD ---
EXAMINATION: XR CHEST 1V CLINICAL HISTORY: Chest pain EXAM DATE/TIME: 02/26/2021 3:49 PM COMPARISON: None FINDINGS: Lines, Tubes, and Devices: Partially visualized left-sided neural stimulator. Cardiomediastinal Silhouette: Within normal limits. Lungs and Pleura: No evidence of focal airspace consolidation or pleural effusion. Pulmonary vasculat ure unremarkable. Bones and Soft Tissues: No acute osseous abnormality. IMPRESSION: No evidence of acute cardiopulmonary abnormality. Electronically signed by: Erick Wang DO (02/26/2021 4:05 PM) [facility]
[2021-02-26 16:09] LABS: ALBUMIN 4.2 g/dL (3.4-5.0); ALBUMIN/GLOBULIN RATIO 1.1 (1.0-1.7); MAGNESIUM 1.9 mg/dL (1.8-2.4); TOTAL BILIRUBIN 0.2 mg/dL (0.2-1.0); TOTAL PROTEIN 8.1 g/dL (6.4-8.2)
--- NOTE | 2021-02-26 16:10 | PHYS DOC ---
Past Medical History Past Medical History: Seizure Additional Past Medical Histor: HEART PALPITATIONS, BRADYCARDIA, INSOMNIA Past Surgical History: No Surgical History Additional Past Surgical Histo: ANKLE, NECK Smoking Status: Current Every Day Smoker Alcohol Use: None General Adult EDM: Chief Complaint: COUGH HPI: HPI: Patient is a 25 year old female who presents with 3 days of chest pain that feels like " something is punching me in the chest" that is continuous with shortness of breath, nausea and dizziness. She rates her pain as 10 out of 10. History of heart palpitations, bradycardia, insomnia, smoker, seizures. Patient states she has not taken anything for the pain. Denies fever, vomiting, abdominal pain, diarrhea, cough, back pain, urinary symptoms, numbness or tingling, focal weakness, syncope. Review of Systems: Review of Systems: Constitutional: Denies fever or +chills. [] Eyes: Denies change in visual acuity. [] HENT: Denies nasal congestion or sore throat. [] Respiratory: Denies cough or +shortness of breath. [] Cardiovascular: + chest pain or denies edema. [] GI: Denies abdominal pain, +nausea, denies vomiting, bloody stools or diarrhea. [] : Denies dysuria. [] Musculoskeletal: Denies back pain or joint pain. [] Integument: Denies rash. [] Neurologic: Denies headache, focal weakness or sensory changes. + Dizziness [] Endocrine: Denies polyuria or polydipsia. [] Lymphatic: Denies swollen glands. [] Psychiatric: Denies depression or anxiety. [] Heart Score: C/O Chest Pain: Yes HEART Score for Chest Pain: HEART Score for Chest Pain Response (Comments) Value History Slighlty/Non-Suspicious 0 ECG Normal 0 Age < 45 0 Risk Factors 1 or 2 Risk Factors 1 Troponin < Normal Limit 0 Total 1 Risk Factors: Risk Factors: DM, Current or recent (<one month) smoker, HTN, HLP, family history of CAD, obesity. Risk Scores: Score 0 - 3: 2.5% MACE over next 6 weeks - Discharge Home Score 4 - 6: 20.3% MACE over next 6 weeks - Admit for Clinical Observation Score 7 - 10: 72.7% MACE over next 6 weeks - Early Invasive Strategies Current Medications: Current Medications Medications (Trade) Dose Ordered Sig/Samuel Start Time Stop Time Status Last Admin Dose Admin Ondansetron HCl (Zofran) 4 mg 1X ONCE 02/26/21 15:30 02/26/21 15:32 DC 02/26/21 15:30 4 MG Sodium Chloride 1,000 ml @ 1,000 mls/hr Q1H 02/26/21 15:30 02/26/21 16:29 02/26/21 15:30 1,000 MLS/HR Allergies: Allergies: Allergies Coded Allergies Type Severity Reaction Last Updated Verified No Known Drug Allergies 02/26/21 No Physical Exam: PE: Constitutional: Well developed, well nourished, no acute distress, non-toxic appearance. [] HENT: Normocephalic, atraumatic, bilateral external ears normal, oropharynx moist, no oral exudates, nose normal. [] Eyes: PERRLA, EOMI, conjunctiva normal, no discharge. [] Neck: Normal range of motion, no tenderness, supple, no stridor. [] Cardiovascular:Heart rate regular rhythm, no murmur [] Lungs & Thorax: Bilateral breath sounds clear to auscultation [] Abdomen: Bowel sounds normal, soft, no tenderness, no masses, no pulsatile masses. [] Skin: Warm, dry, no erythema, no rash. [] Back: No tenderness, no CVA tenderness. [] Extremities: No tenderness, no cyanosis, no clubbing, ROM intact, no edema. [] Neurologic: Alert and oriented X 3, normal motor function, normal sensory function, no focal deficits noted. [] Psychologic: Affect normal, judgement normal, mood normal. [] Normal physical exam Current Patient Data: Labs: Laboratory Tests Test 02/26/21 15:47 White Blood Count 10.2 x10^3/uL (4.0-11.0) Red Blood Count 4.15 x10^6/uL (3.50-5.40) Hemoglobin 12.4 g/dL (12.0-15.5) Hematocrit 37.6 % (36.0-47.0) Mean Corpuscular Volume 91 fL (79-100) Mean Corpuscular Hemoglobin 30 pg (25-35) Mean Corpuscular Hemoglobin Concent 33 g/dL (31-37) Red Cell Distribution Width 14.5 % (11.5-14.5) Platelet Count 289 x10^3/uL (140-400) Neutrophils (%) (Auto) 85 % (31-73) H Lymphocytes (%) (Auto) 12 % (24-48) L Monocytes (%) (Auto) 3 % (0-9) Eosinophils (%) (Auto) 0 % (0-3) Basophils (%) (Auto) 0 % (0-3) Neutrophils # (Auto) 8.7 x10^3/uL (1.8-7.7) H Lymphocytes # (Auto) 1.2 x10^3/uL (1.0-4.8) Monocytes # (Auto) 0.3 x10^3/uL (0.0-1.1) Eosinophils # (Auto) 0.0 x10^3/uL (0.0-0.7) Basophils # (Auto) 0.0 x10^3/uL (0.0-0.2) Laboratory Tests 02/26/21 15:47 Vital Signs: Vital Signs Date Time Temp Pulse Resp B/P (MAP) Pulse Ox O2 Delivery O2 Flow Rate FiO2 02/26/21 15:18 97.8 79 15 155/78 (103) 99 Room Air 97.8 EKG: EK and read by Dr. Stanley is sinus rhythm and no STEMI Radiology/Procedures: Radiology/Procedures: [] Impression: [facility] [address] [place] [address] IMAGING REPORT Signed PATIENT: JARVIS MONTOYA LACCOUNT: [id number] : 1995 LOCATION: ER AGE: 25 SEX: F EXAM STATUS: REG ER ORD. PHYSICIAN: MARGIE CALIXTO SYNTHETIC RESIN OPERATOR REASON: chest pain ucg 3:35 PROCEDURE: PORTABLE CHEST 1V EXAMINATION: XR CHEST 1V CLINICAL HISTORY: Chest pain EXAM DATE/TIME: 02/26/2021 3:49 PM COMPARISON: None FINDINGS: Lines, Tubes, and Devices: Partially visualized left-sided neural stimulator. Cardiomediastinal Silhouette: Within normal limits. Lungs and Pleura: No evidence of focal airspace consolidation or pleural effusion. Pulmonary vasculature unremarkable. Bones and Soft Tissues: No acute osseous abnormality. IMPRESSION: No evidence of acute cardiopulmonary abnormality. Electronically signed by: Erick Nixon DO (02/26/2021 4:05 PM) [place] DICTATED and SIGNED BY: ERICK NIXON DO DATE: 02/26/21 [id number] [facility] [address] [place] [address] IMAGING REPORT Signed PATIENT: JARVIS MONTOYA LACCOUNT: [id number] : 1995 LOCATION: ER AGE: 25 SEX: F EXAM STATUS: REG ER ORD. PHYSICIAN: MARGIE CALIXTO APRN REASON: syncope, DIFFICULTY COOPERATING DURING CT PROCEDURE: CT HEAD AND CERVICAL SPINE WO EXAMINATION: CT HEAD AND C-SPINE WO CLINICAL HISTORY: Syncope TECHNIQUE: Serial axial images without IV contrast were obtained from the vertex to the foramen magnum. CT of the cervical spine without IV contrast. Spiral, high resolution axial images were obtained from the skull base to the cervicothoracic junction with sagittal and coronal planar reconstructions. CT Dose Reduction Employed: One or more of the following individualized dose reduction techniques were utilized for this examination: 1. Automated exposure control 2. Adjustment of the mA and/or kV according to patient size 3. Use of iterative reconstruction technique. COMPARISON: 05/25/2019 FINDINGS: BRAIN: Acute Change: No evidence of an acute contusion or other acute parenchymal process. Hemorrhage: No evidence of acute intracranial hemorrhage. Mass Lesion/Mass Effect: No evidence of intracranial mass or extraaxial fluid collection. No significant mass effect. Parenchyma: Parenchyma within normal limits for age. Ventricles: Ventricles within normal limits for age. Paranasal Sinuses and Skull Base: Visualized paranasal sinuses clear. No evid ence of acute calvarial fracture. C-SPINE: Alignment: Normal anatomic alignment. Osseous Structures: No evidence of acute fracture or spondylolisthesis. Degenerative Changes: No significant degenerative changes. Cervical Soft Tissues: No prevertebral soft tissue swelling. Left vagal nerve stimulator. IMPRESSION: BRAIN: No evidence of acute intracranial abnormality. C-SPINE: No evidence of acute osseous abnormality involving the cervical spine. Electronically signed by: Erick Nixon DO (02/26/2021 7:55 PM) [place] DICTATED and SIGNED BY: ERICK NIXON DO DATE: 02/26/[id number] 0 [facility] [address] [place] [address] IMAGING REPORT Signed PATIENT: JARVIS MONTOYA LACCOUNT: [id number] : 1995 LOCATION: ER AGE: 25 SEX: F EXAM STATUS: REG ER ORD. PHYSICIAN: MARGIE CALIXTO APRN REASON: vomiting PROCEDURE: CT ABD PELV W/ IV CONTRST ONLY EXAMINATION: CT ABDOMEN+PELVIS W CLINICAL HISTORY: Vomiting TECHNIQUE: CT of the abdomen and pelvis was performed using standard technique, scanning from just above the dome of the diaphragm to the symphysis pubis following administration of intravenous contrast. CT Dose Reduction Employed: One or more of the following individualized dose reduction techniques were utilized for this examination: 1. Automated exposure control 2. Adjustment of the mA and/or kV according to patient size 3. Use of iterative reconstruction technique. COMPARISON: None FINDINGS: Visualized heart and lungs unremarkable. Liver, gallbladder, pancreas, spleen, and adrenal glands unremarkable. Punctate nonobstructive left renal calculus. Right kidney unremarkable. Minimally filled urinary bladder suboptimally evaluated. Uterus and left ovary unremarkable on limited evaluation. Dominant right ovarian follicle. No bowel dilation or definite wall thickening. Appendix within normal limits. No abdominal aortic or iliac artery aneurysm. No evidence of acute osseous abnormality. IMPRESSION: No evidence of acute abdominopelvic abnormality. Electronically signed by: Erick Nixon DO (02/26/2021 8:01 PM) [facility] DICTATED and SIGNED BY: ERICK NIXON DO DATE: 02/26/[id number] 0 Course & Med Decision Making: Course & Med Decision Making Pertinent Labs and Imaging studies reviewed. (See chart for details) COVID-19 CRITERIA: The patient was evaluated during the global COVID-19 pandemic, and that diagnosis was suspected/considered upon their initial presentation. Their evaluation, treatment and testing was consistent with current guidelines for patients who present with complaints or symptoms that may be related to COVID-19. See HPI. Alert and oriented x4. Ambulatory steady gait. Speaks in full clear sentences. Lungs are clear to auscultation all lobes. No CVA tenderness. Chest pain not reproduced with palpation. Skin pink warm and dry. No extremity edema. 1820: Patient got up to use the restroom which is likely still needed a urinalysis. Patient was found on the floor 15 minutes later in the restroom with vomit in the toilet. Patient seems to be postictal and not wanting to answer many questions and seems very lethargic. Patient keeps falling asleep. She states she does not remember being on the floor in the restroom. Patient states she has been taking her Lamictal that she is supposed to. Patient is admitted to the hospitalist. [] Joannon Disclaimer: Dragsol Disclaimer: This electronic medical record was generated, in whole or in part, using a voice recognition dictation system. COVID-19 Patient Risks: Age 65 or older: No Sign of co-morbidity: No Exp to person + for COVID: No Exp to PUI: No Travel from affected area: No Lower respiratory symptoms: Yes Fever: Yes Other: Yes (LETHARGY) PPE Use: Full PPE with N95 mask or PAPR: Yes Departure Departure Impression: Primary Impression: Syncope Qualified Codes: R55 - Syncope and collapse Additional Impression: Altered mental status Qualified Codes: R41.82 - Altered mental status, unspecified Disposition: ADMITTED INPATIENT Admitting Physician: PAGE Condition: STABLE Referrals: UNKNOWN PCP NAME (PCP) MARGIE CALIXTO APRN Feb 26, 2021 16:10
[2021-02-26] MEDS ORDERED: IV NORMAL SALINE 1000ML BAG 1,000 ML IV ONE (16:15)
[2021-02-26] MEDS ORDERED: KETOROLAC 30 MG/ML VIAL. IVP ONE (16:15)
[2021-02-26] MEDS ORDERED: KETOROLAC 15 MG/ML VIAL. IVP ONE (18:15)
[2021-02-26 18:30] LABS: BILIRUBIN,URINE NEGATIVE (NEG); CLARITY,URINE CLEAR; COLOR,URINE YELLOW; NITRITE,URINE NEGATIVE (NEG); PH,URINE 8.5 (<5.0-8.0); PROTEIN,URINE 30 mg/dL (NEG-TRACE); UROBILINOGEN,URINE 0.2 mg/dL (0.2 mg/dL)
[2021-02-26 18:36] LABS: BARBITURATES NEG (NEG); BENZODIAZEPINES NEG (NEG); CANNABINOIDS POS (NEG); COCAINE NEG (NEG); METHADONE NEG (NEG); OPIATES NEG (NEG); PHENCYCLIDINE NEG (NEG)
[2021-02-26 18:37] LABS: AMPHETAMINE/METHAMPHETAMINE NEG (NEG)
[2021-02-26 18:43] LABS: BACTERIA,URINE MODERATE /HPF (0-FEW); RBC,URINE OCC /HPF (0-2); WBC,URINE OCC /HPF (0-4)
[2021-02-26] MEDS ORDERED: levETIRAcetam 1,000 MG in IV DEXTROSE 5% 100ML 100 ML IV ONE (18:45)
[2021-02-26 19:11] LABS: U PREG PATIENT NEGATIVE (NEG)
[2021-02-26] MEDS ORDERED: IOHEXOL 300 MG/ML 100ML VIAL. IV ONE (19:15)
[2021-02-26] MEDS ORDERED: CONTRAST GIVEN. MC PRN (19:30)
--- NOTE | 2021-02-26 19:58 | RAD ---
EXAMINATION: CT HEAD AND C-SPINE WO CLINICAL HISTORY: Syncope TECHNIQUE: Serial axial images without IV contrast were obtained from the vertex to the foramen magnum. CT of the cervical spine without IV contrast. Spiral, high resolution axial images were obtained from the skull base to the cervicothoracic junction with sagittal and coronal planar reconstructions. CT Dose Reduction Employed: One or more of the following individualized dose reduction techniques wer e utilized for this examination: 1. Automated exposure control 2. Adjustment of the mA and/or kV ac cording to patient size 3. Use of iterative reconstruction technique. COMPARISON: 05/25/2019 FINDINGS: BRAIN: Acute Change: No evidence of an acute contusion or other acute parenchymal process. Hemorrhage: No evidence of acute intracranial hemorrhage. Mass Lesion/Mass Effect: No evidence of intracranial mass or extraaxial fluid collection. No signific ant mass effect. Parenchyma: Parenchyma within normal limits for age. Ventricles: Ventricles within normal limits for age. Paranasal Sinuses and Skull Base: Visualized paranasal sinuses clear. No evidence of acute calvarial fracture. C-SPINE: Alignment: Normal anatomic alignment. Osseous Structures: No evidence of acute fracture or spondylolisthesis. Degenerative Changes: No significant degenerative changes. Cervical Soft Tissues: No prevertebral soft tissue swelling. Left vagal nerve stimulator. IMPRESSION: BRAIN: No evidence of acute intracranial abnormality. C-SPINE: No evidence of acute osseous abnormality involving the cervical spine. Electronically signed by: Erick Wang DO (02/26/2021 7:55 PM) [facility]
[2021-02-26] MEDS ORDERED: ACETAMINOPHEN 325 MG TABLET. PO PRN (20:00)
--- NOTE | 2021-02-26 20:03 | RAD ---
EXAMINATION: CT ABDOMEN+PELVIS W CLINICAL HISTORY: Vomiting TECHNIQUE: CT of the abdomen and pelvis was performed using standard technique, scanning from just ab ove the dome of the diaphragm to the symphysis pubis following administration of intravenous contrast . CT Dose Reduction Employed: One or more of the following individualized dose reduction techniques wer e utilized for this examination: 1. Automated exposure control 2. Adjustment of the mA and/or kV ac cording to patient size 3. Use of iterative reconstruction technique. COMPARISON: None FINDINGS: Visualized heart and lungs unremarkable. Liver, gallbladder, pancreas, spleen, and adrenal glands unremarkable. Punctate nonobstructive left renal calculus. Right kidney unremarkable. Minimally filled urinary bladder suboptimally evaluated. Uterus and left ovary unremarkable on limite d evaluation. Dominant right ovarian follicle. No bowel dilation or definite wall thickening. Appendix within normal limits. No abdominal aortic or iliac artery aneurysm. No evidence of acute osseous abnormality. IMPRESSION: No evidence of acute abdominopelvic abnormality. Electronically signed by: Erick Wang DO (02/26/2021 8:01 PM) [facility]
--- NOTE | 2021-02-26 21:43 | HP ---
DATE OF SERVICE: 02/26/2021 ADMIT DATE: 02/26/2021 CHIEF COMPLAINT: Cough and mental status change. HISTORY OF PRESENT ILLNESS: The patient is a pleasant 25-year-old female who has a history of seizure disorders. She presented today with a cough. She felt like something was punching her in the chest. She also had some mental status change, rates his pain at 10/10. While in the ER, she went to the bathroom and did not come out for 15 minutes. They found her on the floor. She seems like she might be postictal, although her CPK level is not high. She does not really have a fever. She does not really tachycardic. I discussed the case with ER physician. We are going to admit the patient for consultation with Neurology. PAST MEDICAL HISTORY: Seizures, palpitations, bradycardia, insomnia, ankle and neck surgery, tobacco abuse. ALLERGIES: None. FAMILY HISTORY: Hypertension and seizures. SOCIAL HISTORY: She smokes. No drink or drugs. MEDICATIONS: Reviewed, please refer to the MRAD. REVIEW OF SYSTEMS: Unable to obtain. She is a little too confused, perhaps postictal. PHYSICAL EXAMINATION: VITALS: Within normal limits and are stable. GENERAL: She seems to be postictal. HEENT: Normal cephalic atraumatic, external auditory canals are patent EYES: Extraocular muscles are intact, pupils are equally round and reactive to light and accommodation MUSKULOSKELETAL: Well developed, well nourished, good range of motion ENDOCRINE: No thyromegaly was palpated LYMPHATICS: No cervical chain or axillary nodes were noted HEMATOPOIETIC: No bruising NECK: Supple, no JVD, no thyromegaly was noted. LUNGS: Clear to auscultation in all lung bautista without rhonchi or wheezing. HEART: RRR, S1, S2 present. Peripheral pulses intact, no obvious murmurs were noted. ABDOMEN: Soft, nontender. Positive bowel sounds no organomegaly, normal bowel sounds. EXTREMITIES: Without any cyanosis, clubbing, or edema. Pedal pulses intact, Homans sign is negative. NEUROLOGIC: She seems to be postictal. PSYCHIATRIC: She seems to be postictal. SKIN: No ulcerations or rashes, good skin turgor, no jaundice. VASCULAR: Good capillary refill, neurovascular bundle appears to be intact. LABORATORY DATA: Hematology is normal. Electrolytes are pending. D-dimer is less than 0.27. Drug screen positive for cannabinoids. Urinalysis negative. COVID testing negative. Chest x-ray negative. CT of the head negative. ASSESSMENT AND PLAN: Mental status change in a younger lady who has a history of seizures, perhaps she is postictal. We are going to admit her and consult Neurology. Seizure precautions. Home meds. Deep venous thrombosis prophylaxis. Full code. DURGA/KARLY DR: Kuldip TID: [id number]
[2021-02-26 21:44] VITALS: BP 106/76
[2021-02-26] MEDS ORDERED: LORazepam 0.5 MG TABLET PO SCH (22:00)
[2021-02-26] MEDS: lamoTRIgine 100 MG TABLET. PO SCH (22:35)
[2021-02-26] MEDS: OXcarbazepine 300 MG TABLET PO SCH (22:35)
[2021-02-26] MEDS: lamoTRIgine 25 MG TABLET. PO SCH (22:35)
[2021-02-26] MEDS: PROPRANOLOL 40 MG TABLET. PO SCH (22:36)
[2021-02-26 22:42] VITALS: BP 112/59
--- NOTE | 2021-02-26 23:55 | NUR ---
Pt arrived to room 665 per bed at 2113, pt assisted to bed client service representative applied vs obtained and stable. Pt drowsy but follows commands assessment completed pt denied pain. Pt oriented to surroundings and call light pt reminded to call for assistance prior to getting oob. Bed alarm set as a reminder to call. Will resume care and continue to monitor pt. Pt not able to state exact dosages of home medications will place call to pt pharmacy for update list.
--- NOTE | 2021-02-27 02:25 | EKG ---
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
[2021-02-27 02:49] VITALS: BP 118/63
[2021-02-27 07:00] VITALS: BP 110/59
[2021-02-27] MEDS: PROPRANOLOL 40 MG TABLET. PO SCH (08:53)
[2021-02-27] MEDS: lamoTRIgine 100 MG TABLET. PO SCH (08:53)
[2021-02-27] MEDS: OXcarbazepine 300 MG TABLET PO SCH (08:53)
[2021-02-27] MEDS: lamoTRIgine 25 MG TABLET. PO SCH (08:54)
[2021-02-27] MEDS ORDERED: FOLI0.4T5 PO (08:58)
[2021-02-27] MEDS ORDERED: FLUoxetine HCL 10 MG CAPSULE PO SCH (09:00)
--- NOTE | 2021-02-27 10:59 | NUR ---
SS following for discharge planning. SS reviewed pt chart and discussed with pt RN. Pt is from home and is currently on room air. COVID19 negative. Cardiology consulted. Discharge plan is currently to home when medically ready for discharge. SS will continue to follow for discharge planning.
[2021-02-27 11:00] VITALS: BP 115/74
--- NOTE | 2021-02-27 11:19 | PDOC2 ---
NEUROLOGY CONSULT Date of Service DOS: DATE: 02/27/21 TIME: 11:14 Reason for Consult Reason for Consult: Seizures Referring Physician Referring Physician: Dr. Carias Source Source: Chart review, Patient History of Present Illness History of Present Illness The patient is a 25-year-old right-handed female with history of seizures since age 7 for which she sees Dr. Cole. She came in the emergency department yesterday with a cough and pain in her chest radiating into her abdomen. Dr. Cole has given her propanolol for tachycardia and palpitations but she has never seen a radiological technologist. While in the emergency department she went to the bathroom and did not return after 15 minutes, nursing found her on the floor unresponsive looking postictal. She is not sure if she had a seizure, but she does have flurries of seizures despite 2 anticonvulsants and a vagus nerve stimulator. Patient is feeling much better today. 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, rare alcohol, no street drugs Current Medications Current Medications Current Medications Sodium Chloride 1,000 ml @ 1,000 mls/hr Q1H IV Last administered on 02/26/21at 15:30; Start 02/26/21 at 15:30; Stop 02/26/21 at 16:29; Status DC Ondansetron HCl (Zofran) 4 mg 1X ONCE IVP Last administered on 02/26/21at 15:30; Start 02/26/21 at 15:30; Stop 02/26/21 at 15:32; Status DC Sodium Chloride 1,000 ml @ 1,000 mls/hr 1X ONCE IV Last administered on 02/26/21at 16:15; Start 02/26/21 at 16:15; Stop 02/26/21 at 17:14; Status DC Ketorolac Tromethamine (Toradol 30mg Vial) 30 mg 1X ONCE IVP Last administered on 02/26/21at 16:15; Start 02/26/21 at 16:15; Stop 02/26/21 at 16:16; Status DC Ketorolac Tromethamine (Toradol 15mg Vial) 15 mg 1X ONCE IVP ; Start 02/26/21 at 18:15; Stop 02/26/21 at 18:16; Status UNV Levetiracetam 1000 mg/Dextrose 110 ml @ 440 mls/hr 1X ONCE IV Last administered on 02/26/21at 18:49; Start 02/26/21 at 18:45; Stop 02/26/21 at 18:59; Status DC Iohexol (Omnipaque 300 Mg/ml) 75 ml 1X ONCE IV Last administered on 02/26/21at 19:32; Start 02/26/21 at 19:15; Stop 02/26/21 at 19:17; Status DC Info (CONTRAST GIVEN -- Rx MONITORING) 1 each PRN DAILY PRN MC SEE COMMENTS; Start 02/26/21 at 19:30; Stop 02/28/21 at 19:29 Acetaminophen (Tylenol) 650 mg PRN Q4HRS PRN PO FEVER > 100.3'F; Start 02/26/21 at 20:00; Stop 02/27/21 at 19:59 Fluoxetine HCl (PROzac) 10 mg DAILY PO Last administered on 02/27/21at 08:54; Start 02/27/21 at 09:00 Lamotrigine (LaMICtal) 25 mg BID PO Last administered on 02/27/21at 08:54; Start 02/26/21 at 22:00 Lorazepam (Ativan) 0.5 mg HS PO Last administered on 02/26/21at 22:35; Start 02/26/21 at 22:00 Oxcarbazepine (Trileptal) 300 mg BID PO Last administered on 02/27/21at 08:53; Start 02/26/21 at 22:00 Propranolol HCl (Inderal) 40 mg BID PO Last administered on 02/27/21at 08:53; Start 02/26/21 at 22:00 Lamotrigine (LaMICtal) 200 mg BID PO Last administered on 02/27/21at 08:53; Start 02/26/21 at 22:00 Active Scripts Active Ativan (Lorazepam) 0.5 Mg Tablet 0.5 Mg PO HS 30 Days Reported Folic Acid 0.4 Mg Tablet 0.4 Mg PO DAILY Oxcarbazepine 300 Mg Tablet 1 Tab PO BID 30 Days Fluoxetine Hcl 10 Mg Capsule 1 Cap PO DAILY 90 Days Propranolol Hcl 40 Mg Tablet 1 Tab PO BID 90 Days Lamictal (Lamotrigine) 25 Mg Tablet 1 Tab PO BID 90 Days Lamictal (Lamotrigine) 200 Mg Tablet 200 Mg PO BID 90 Days Allergies Allergies: Coded Allergies: No Known Drug Allergies (Unverified , 02/26/21) ROS Review of System Negative for fever, chills, weight loss, shortness of breath, chest pain, in digestion, hematochezia, melena, and dysuria. Full 14-point review of systems is negative. Physical Exam Physical Examination General: Well-developed, well-nourished, white female, in no acute distress HEENT: Normocephalic andatraumatic. Temporal arteriespulsatile and nontender. Neck: Supple without bruit, no meningismus Musculoskeletal: Stability:see neurologic. Gait exam:see neurologic. Tone:see neurologic.Strength:see neurologic. Neurological: Mental Status:intact, orientation, memory, attention span/concentration, language, fund of knowledge normal. Cranial Nerves:Pupils equal and reactive to light, extraocular movements areintact, visual bautista are full to confrontation. Facial sensation is normal. There is no facial asymmetry. Vestibulo-ocular reflex is intact. Palate elevates and tongue protrudes in midline. All other cranial related problems are negative except as mentioned before.Reflexes:2+ and symmetric with flexor plantar responses. Motor:5/5 strength with normal tone and bulk. Coordination:Finger-nose finger and inub-du-gnxa testing are normal. Rapid alternating movements and fine finger movements are intact. Gait:Normal, including tandem. Sensory:Normal pinprick, vibration, light touch, proprioception. Vitals VITALS Vital Signs Date Time Temp Pulse Resp B/P (MAP) Pulse Ox O2 Delivery O2 Flow Rate FiO2 02/27/21 11:00 97.8 71 16 115/74 (88) 97 Room Air 97.8 Labs Labs Laboratory Tests Test 02/26/21 15:47 02/26/21 17:09 02/26/21 18:22 02/26/21 18:37 White Blood Count 10.2 x10^3/uL (4.0-11.0) Red Blood Count 4.15 x10^6/uL (3.50-5.40) Hemoglobin 12.4 g/dL (12.0-15.5) Hematocrit 37.6 % (36.0-47.0) Mean Corpuscular Volume 91 fL (79-100) Mean Corpuscular Hemoglobin 30 pg (25-35) Mean Corpuscular Hemoglobin Concent 33 g/dL (31-37) Red Cell Distribution Width 14.5 % (11.5-14.5) Platelet Count 289 x10^3/uL (140-400) Neutrophils (%) (Auto) 85 % (31-73) Lymphocytes (%) (Auto) 12 % (24-48) Monocytes (%) (Auto) 3 % (0-9) Eosinophils (%) (Auto) 0 % (0-3) Basophils (%) (Auto) 0 % (0-3) Neutrophils # (Auto) 8.7 x10^3/uL (1.8-7.7) Lymphocytes # (Auto) 1.2 x10^3/uL (1.0-4.8) Monocytes # (Auto) 0.3 x10^3/uL (0.0-1.1) Eosinophils # (Auto) 0.0 x10^3/uL (0.0-0.7) Basophils # (Auto) 0.0 x10^3/uL (0.0-0.2) D-Dimer (Ene) < 0.27 ug/mlFEU Sodium Level 129 mmol/L (136-145) Potassium Level 4.0 mmol/L (3.5-5.1) Chloride Level 94 mmol/L (98-107) Carbon Dioxide Level 22 mmol/L (21-32) Anion Gap 13 (6-14) Blood Urea Nitrogen 14 mg/dL (7-20) Creatinine 0.5 mg/dL (0.6-1.0) Estimated GFR (Cockcroft-Gault) 149.1 BUN/Creatinine Ratio 28 (6-20) Glucose Level 135 mg/dL (70-99) Calcium Level 9.2 mg/dL (8.5-10.1) Magnesium Level 1.9 mg/dL (1.8-2.4) Total Bilirubin 0.2 mg/dL (0.2-1.0) Aspartate Amino Transf (AST/SGOT) 20 U/L (15-37) Alanine Aminotransferase (ALT/SGPT) 34 U/L (14-59) Alkaline Phosphatase 76 U/L (46-116) Creatine Kinase 60 U/L (26-192) Troponin I High Sensitivity < 4 ng/L (4-50) < 4 ng/L (4-50) DD-Cjd-X-Type Natriuretic Peptide 158 pg/mL (0-124) Total Protein 8.1 g/dL (6.4-8.2) Albumin 4.2 g/dL (3.4-5.0) Albumin/Globulin Ratio 1.1 (1.0-1.7) Lipase 53 U/L (73-393) SARS-CoV-2 RNA (JUAN) Negative (Negative) SARS-CoV-2 Antigen (Rapid) Negative (NEGATIVE) Urine Collection Type Unknown Urine Color Yellow Urine Clarity Clear Urine pH 8.5 (<5.0-8.0) Urine Specific [place] 1.020 (1.000-1.030) Urine Protein 30 mg/dL (NEG-TRACE) Urine Glucose (UA) Negative mg/dL (NEG) Urine Ketones (Stick) 15 mg/dL (NEG) Urine Blood Negative (NEG) Urine Nitrite Negative (NEG) Urine Bilirubin Negative (NEG) Urine Urobilinogen Dipstick 0.2 mg/dL (0.2 mg/dL) Urine Leukocyte Esterase Negative (NEG) Urine RBC Occ /HPF (0-2) Urine WBC Occ /HPF (0-4) Urine Squamous Epithelial Cells Mod /LPF Urine Bacteria Moderate /HPF (0-FEW) Urine Mucus Slight /LPF Urine Test Negative (NEG) Urine Opiates Screen Neg (NEG) Urine Methadone Screen Neg (NEG) Urine Barbiturates Neg (NEG) Urine Phencyclidine Screen Neg (NEG) Urine Amphetamine/Methamphetamine Neg (NEG) Urine Benzodiazepines Screen Neg (NEG) Urine Cocaine Screen Neg (NEG) Urine Cannabinoids Screen Pos (NEG) Urine Ethyl Alcohol Neg (NEG) Lactic Acid Level 1.0 mmol/L (0.4-2.0) Test 02/26/21 21:20 Troponin I High Sensitivity < 4 ng/L (4-50) Laboratory Tests Test 02/26/21 15:47 02/26/21 17:09 02/26/21 18:22 02/26/21 18:37 White Blood Count 10.2 x10^3/uL (4.0-11.0) Red Blood Count 4.15 x10^6/uL (3.50-5.40) Hemoglobin 12.4 g/dL (12.0-15.5) Hematocrit 37.6 % (36.0-47.0) Mean Corpuscular Volume 91 fL (79-100) Mean Corpuscular Hemoglobin 30 pg (25-35) Mean Corpuscular Hemoglobin Concent 33 g/dL (31-37) Red Cell Distribution Width 14.5 % (11.5-14.5) Platelet Count 289 x10^3/uL (140-400) Neutrophils (%) (Auto) 85 % (31-73) Lymphocytes (%) (Auto) 12 % (24-48) Monocytes (%) (Auto) 3 % (0-9) Eosinophils (%) (Auto) 0 % (0-3) Basophils (%) (Auto) 0 % (0-3) Neutrophils # (Auto) 8.7 x10^3/uL (1.8-7.7) Lymphocytes # (Auto) 1.2 x10^3/uL (1.0-4.8) Monocytes # (Auto) 0.3 x10^3/uL (0.0-1.1) Eosinophils # (Auto) 0.0 x10^3/uL (0.0-0.7) Basophils # (Auto) 0.0 x10^3/uL (0.0-0.2) D-Dimer (Ene) < 0.27 ug/mlFEU Sodium Level 129 mmol/L (136-145) Potassium Level 4.0 mmol/L (3.5-5.1) Chloride Level 94 mmol/L (98-107) Carbon Dioxide Level 22 mmol/L (21-32) Anion Gap 13 (6-14) Blood Urea Nitrogen 14 mg/dL (7-20) Creatinine 0.5 mg/dL (0.6-1.0) Estimated GFR (Cockcroft-Gault) 149.1 BUN/Creatinine Ratio 28 (6-20) Glucose Level 135 mg/dL (70-99) Calcium Level 9.2 mg/dL (8.5-10.1) Magnesium Level 1.9 mg/dL (1.8-2.4) Total Bilirubin 0.2 mg/dL (0.2-1.0) Aspartate Amino Transf (AST/SGOT) 20 U/L (15-37) Alanine Aminotransferase (ALT/SGPT) 34 U/L (14-59) Alkaline Phosphatase 76 U/L (46-116) Creatine Kinase 60 U/L (26-192) Troponin I High Sensitivity < 4 ng/L (4-50) < 4 ng/L (4-50) JW-Ucb-P-Type Natriuretic Peptide 158 pg/mL (0-124) Total Protein 8.1 g/dL (6.4-8.2) Albumin 4.2 g/dL (3.4-5.0) Albumin/Globulin Ratio 1.1 (1.0-1.7) Lipase 53 U/L (73-393) SARS-CoV-2 RNA (JUAN) Negative (Negative) SARS-CoV-2 Antigen (Rapid) Negative (NEGATIVE) Urine Collection Type Unknown Urine Color Yellow Urine Clarity Clear Urine pH 8.5 (<5.0-8.0) Urine Specific [place] 1.020 (1.000-1.030) Urine Protein 30 mg/dL (NEG-TRACE) Urine Glucose (UA) Negative mg/dL (NEG) Urine Ketones (Stick) 15 mg/dL (NEG) Urine Blood Negative (NEG) Urine Nitrite Negative (NEG) Urine Bilirubin Negative (NEG) Urine Urobilinogen Dipstick 0.2 mg/dL (0.2 mg/dL) Urine Leukocyte Esterase Negative (NEG) Urine RBC Occ /HPF (0-2) Urine WBC Occ /HPF (0-4) Urine Squamous Epithelial Cells Mod /LPF Urine Bacteria Moderate /HPF (0-FEW) Urine Mucus Slight /LPF Urine Test Negative (NEG) Urine Opiates Screen Neg (NEG) Urine Methadone Screen Neg (NEG) Urine Barbiturates Neg (NEG) Urine Phencyclidine Screen Neg (NEG) Urine Amphetamine/Methamphetamine Neg (NEG) Urine Benzodiazepines Screen Neg (NEG) Urine Cocaine Screen Neg (NEG) Urine Cannabinoids Screen Pos (NEG) Urine Ethyl Alcohol Neg (NEG) Lactic Acid Level 1.0 mmol/L (0.4-2.0) Test 02/26/21 21:20 Troponin I High Sensitivity < 4 ng/L (4-50) Images Images CT of the cervical spine without IV contrast. Spiral, high resolution axial images were obtained from the skull base to the cervicothoracic junction with sagittal and coronal planar reconstructions. CT Dose Reduction Employed: One or more of the following individualized dose reduction techniques were utilized for this examination: 1. Automated exposure control 2. Adjustment of the mA and/or kV according to patient size 3. Use of iterative reconstruction technique. COMPARISON: 05/25/2019 FINDINGS: BRAIN: Acute Change: No evidence of an acute contusion or other acute parenchymal process. Hemorrhage: No evidence of acute intracranial hemorrhage. Mass Lesion/Mass Effect: No evidence of intracranial mass or extraaxial fluid collection. No significant mass effect. Parenchyma: Parenchyma within normal limits for age. Ventricles: Ventricles within normal limits for age. Paranasal Sinuses and Skull Base: Visualized paranasal sinuses clear. No evidence of acute calvarial fracture. C-SPINE: Alignment: Normal anatomic alignment. Osseous Structures: No evidence of acute fracture or spondylolisthesis. Degenerative Changes: No significant degenerative changes. Cervical Soft Tissues: No prevertebral soft tissue swelling. Left vagal nerve stimulator. IMPRESSION: BRAIN: No evidence of acute intracranial abnormality. C-SPINE: No evidence of acute osseous abnormality involving the cervical spine. Assessment/Plan Assessment/Plan Impression: I suspect she did have a seizure in the emergency department, patient with known intractable epilepsy Chest pain, palpitations, doubt cardiac cause, but she has never seen a radiological technologist for her cardiac symptoms Recommendations: Continue current anticonvulsants Continue to follow with Dr. Cole Cardiology consult Aim for discharge later today Thank you for letting me help with the patient's care. BLAZE MORSE MD Feb 27, 2021 11:19
--- NOTE | 2021-02-27 12:03 | DS ---
ADMISSION DIAGNOSIS: Syncope versus seizure. DISCHARGE DIAGNOSES: Resolving mental status change, suspect possible seizure. CONSULTS: Neurology and Cardiology. PROCEDURE: None. HOSPITAL COURSE: The patient is a pleasant middle-aged younger female, 25 years old, who presented with mental status change and has a syncopal episode in the ER. We admitted her. We thought she might be postictal. I did consult Dr. Weaver. He felt like she probably may have had a seizure. She does have known intractable epilepsy. Today, I saw and examined her. She is at her baseline. We plan to discharge. DISPOSITION: Home. ACTIVITY: As tolerated. DIET: Low sodium. DISCHARGE MEDICATIONS: Fluoxetine 10 a day, folic acid 0.4 a day, Lamictal 225 b.i.d., Ativan 0.5 at bedtime, oxcarbazepine 300 b.i.d., and propranolol 40 b.i.d. TOTAL TIME: [address]: Kuldip TID: [id number]
--- NOTE | 2021-02-27 12:36 | PDOC2 ---
ÁLVARO CALLAWAY APARTMENT LEASING AGENT 02/27/21 1236: CARDIAC CONSULT DATE OF CONSULT Date of Consult DATE: 02/27/21 TIME: 12:20 REASON FOR CONSULT Reason for Consult: Atypical CP, hx of tachycardia REFERRING PHYSICIAN Referring Physician: Owen SOURCE Source: Chart review, Patient HISTORY OF PRESENT ILLNESS HISTORY OF PRESENT ILLNESS seizures hx ccough chest and abd pain has propranolol for boo [place] PAST MEDICAL HISTORY Past Medical History Cardiovascular: Other (Palpitations, tachycardia) CENTRAL NERVOUS SYSTEM: Seizure Psych: Anxiety, Depression, Other (Insomnia) PAST SURGICAL HISTORY Past Surgical History Ankle, cervical, vagus nerve stimulator FAMILY HISTORY Family History: Other (foster child) SOCIAL HISTORY Smoke: No ALCOHOL: none Drugs: None CURRENT MEDICATIONS CURRENT MEDICATIONS Current Medications Medications (Trade) Dose Ordered Sig/Samuel Route PRN Reason Start Time Stop Time Status Last Admin Dose Admin Sodium Chloride 1,000 ml @ 1,000 mls/hr Q1H IV 02/26/21 15:30 02/26/21 16:29 DC 02/26/21 15:30 Ondansetron HCl (Zofran) 4 mg 1X ONCE IVP 02/26/21 15:30 02/26/21 15:32 DC 02/26/21 15:30 Sodium Chloride 1,000 ml @ 1,000 mls/hr 1X ONCE IV 02/26/21 16:15 02/26/21 17:14 DC 02/26/21 16:15 Ketorolac Tromethamine (Toradol 30mg Vial) 30 mg 1X ONCE IVP 02/26/21 16:15 02/26/21 16:16 DC 02/26/21 16:15 Levetiracetam 1000 mg/Dextrose 110 ml @ 440 mls/hr 1X ONCE IV 02/26/21 18:45 02/26/21 18:59 DC 02/26/21 18:49 Iohexol (Omnipaque 300 Mg/ml) 75 ml 1X ONCE IV 02/26/21 19:15 02/26/21 19:17 DC 02/26/21 19:32 Fluoxetine HCl (PROzac) 10 mg DAILY PO 02/27/21 09:00 02/27/21 08:54 Lamotrigine (LaMICtal) 25 mg BID PO 02/26/21 22:00 02/27/21 08:54 Lorazepam (Ativan) 0.5 mg HS PO 02/26/21 22:00 02/26/21 22:35 Oxcarbazepine (Trileptal) 300 mg BID PO 02/26/21 22:00 02/27/21 08:53 Propranolol HCl (Inderal) 40 mg BID PO 02/26/21 22:00 02/27/21 08:53 Lamotrigine (LaMICtal) 200 mg BID PO 02/26/21 22:00 02/27/21 08:53 ALLERGIES ALLERGIES: Coded Allergies: No Known Drug Allergies (Unverified , 02/26/21) ROS Review of System 14 point ROS evaluated with pertinent positives noted per HPI PHYSICAL EXAM General: Alert, Oriented X3, Cooperative, No acute distress HEENT: Atraumatic, Mucous membr. moist/pink Lungs: Clear to auscultation, Normal air movement Heart: Regular rate (SR), Normal S1, Normal S2, No murmurs Abdomen: Soft, No tenderness Extremities: No cyanosis, No edema Skin: No breakdown, No significant lesion Neuro: Normal speech, Sensation intact Psych/Mental Status: Mental status NL, Mood NL MUSCULOSKELETAL: Osteoarthritic changes both hands VITALS/I&O VITALS/I&O: Vital Signs Date Time Temp Pulse Resp B/P (MAP) Pulse Ox O2 Delivery O2 Flow Rate FiO2 02/27/21 11:00 97.8 71 16 115/74 (88) 97 Room Air 97.8 I & O 02/26/21 02/26/21 02/27/21 15:00 23:00 07:00 Intake Total 0 ml Output Total 1000 ml Balance -1000 ml LABS Lab: Laboratory Tests Test 02/26/21 15:47 02/26/21 17:09 02/26/21 18:22 02/26/21 18:37 White Blood Count 10.2 x10^3/uL (4.0-11.0) Red Blood Count 4.15 x10^6/uL (3.50-5.40) Hemoglobin 12.4 g/dL (12.0-15.5) Hematocrit 37.6 % (36.0-47.0) Mean Corpuscular Volume 91 fL (79-100) Mean Corpuscular Hemoglobin 30 pg (25-35) Mean Corpuscular Hemoglobin Concent 33 g/dL (31-37) Red Cell Distribution Width 14.5 % (11.5-14.5) Platelet Count 289 x10^3/uL (140-400) Neutrophils (%) (Auto) 85 % (31-73) H Lymphocytes (%) (Auto) 12 % (24-48) L Monocytes (%) (Auto) 3 % (0-9) Eosinophils (%) (Auto) 0 % (0-3) Basophils (%) (Auto) 0 % (0-3) Neutrophils # (Auto) 8.7 x10^3/uL (1.8-7.7) H Lymphocytes # (Auto) 1.2 x10^3/uL (1.0-4.8) Monocytes # (Auto) 0.3 x10^3/uL (0.0-1.1) Eosinophils # (Auto) 0.0 x10^3/uL (0.0-0.7) Basophils # (Auto) 0.0 x10^3/uL (0.0-0.2) D-Dimer (Ene) < 0.27 ug/mlFEU Sodium Level 129 mmol/L (136-145) L Potassium Level 4.0 mmol/L (3.5-5.1) Chloride Level 94 mmol/L (98-107) L Carbon Dioxide Level 22 mmol/L (21-32) Anion Gap 13 (6-14) Blood Urea Nitrogen 14 mg/dL (7-20) Creatinine 0.5 mg/dL (0.6-1.0) L Estimated GFR (Cockcroft-Gault) 149.1 BUN/Creatinine Ratio 28 (6-20) H Glucose Level 135 mg/dL (70-99) H Calcium Level 9.2 mg/dL (8.5-10.1) Magnesium Level 1.9 mg/dL (1.8-2.4) Total Bilirubin 0.2 mg/dL (0.2-1.0) Aspartate Amino Transferase (AST) 20 U/L (15-37) Alanine Aminotransferase (ALT) 34 U/L (14-59) Alkaline Phosphatase 76 U/L (46-116) Creatine Kinase 60 U/L (26-192) Troponin I High Sensitivity < 4 ng/L (4-50) L < 4 ng/L (4-50) L AQ-Mal-S-Type Natriuretic Peptide 158 pg/mL (0-124) H Total Protein 8.1 g/dL (6.4-8.2) Albumin 4.2 g/dL (3.4-5.0) Albumin/Globulin Ratio 1.1 (1.0-1.7) Lipase 53 U/L (73-393) L SARS-CoV-2 RNA (UJAN) Negative (Negative) SARS-CoV-2 Antigen (Rapid) Negative (NEGATIVE) Urine Collection Type Unknown Urine Color Yellow Urine Clarity Clear Urine pH 8.5 (<5.0-8.0) Urine Specific [place] 1.020 (1.000-1.030) Urine Protein 30 mg/dL (NEG-TRACE) Urine Glucose (UA) Negative mg/dL (NEG) Urine Ketones (Stick) 15 mg/dL (NEG) Urine Blood Negative (NEG) Urine Nitrite Negative (NEG) Urine Bilirubin Negative (NEG) Urine Urobilinogen Dipstick 0.2 mg/dL (0.2 mg/dL) Urine Leukocyte Esterase Negative (NEG) Urine RBC Occ /HPF (0-2) Urine WBC Occ /HPF (0-4) Urine Squamous Epithelial Cells Mod /LPF Urine Bacteria Moderate /HPF (0-FEW) Urine Mucus Slight /LPF Urine Test Negative (NEG) Urine Opiates Screen Neg (NEG) Urine Methadone Screen Neg (NEG) Urine Barbiturates Neg (NEG) Urine Phencyclidine Screen Neg (NEG) Urine Amphetamine/Methamphetamine Neg (NEG) Urine Benzodiazepines Screen Neg (NEG) Urine Cocaine Screen Neg (NEG) Urine Cannabinoids Screen Pos (NEG) Urine Ethyl Alcohol Neg (NEG) Lactic Acid Level 1.0 mmol/L (0.4-2.0) Test 02/26/21 21:20 Troponin I High Sensitivity < 4 ng/L (4-50) L Laboratory Tests 02/26/21 15:47 Laboratory Tests 02/26/21 15:47 ASSESSMENT/PLAN ASSESSMENT/PLAN 1. Atypical chest pain: possibly from palpitations, doubt ACS 2. Hx of tachycardia: on propranolol. Maintaining SR, No arrhythmia 3. Hx of seizures with vagal nerve stimulkator Recommendations 1. Follow up with [facility] cardiology. Her first appt in March and will need [facility]OT to ascertain burden and type of tachycardia and TTE outpt 2. Continue propranolol 3. Nothing further may SHAHEED RAMIREZ MD 02/27/21 1515: CARDIAC CONSULT ASSESSMENT/PLAN ASSESSMENT/PLAN The patient was seen and interviewed as well as examined at the bedside. The chart was reviewed. The case was discussed. Agree with the plan of care. ÁLVARO CALLAWAY APRN Feb 27, 2021 12:36 SHAHEED FERNANDEZ MD Feb 27, 2021 15:15
[2021-02-27 15:00] VITALS: BP 103/68
--- NOTE | 2021-02-27 19:10 | NUR ---
Discharge Note: JARVIS MONTOYA [address] [place] [address] Discharge instructions and discharge home medications reviewed with Patient and a copy given. All questions have been answered and understanding verbalized. The following instructions and handouts were given: Diet, activity, medication list and follow up instructions provided to patient. Discontinued lines and drains: Peripheral IV discontinued and catheter intact. Patient discharged to Home or Self Care with Self via Ambulated
== END 2021-02-27 18:10 | disposition home or self-care (01) ==
LOC: ER 15:10 → 6 SOUTH 20:32
PROVIDERS: ADMIT Internal Medicine; ATTEND Internal Medicine
DX: R41.82 Altered mental status, unspecified (principal); Z20.822 Contact with and (suspected) exposure to COVID-19; R07.89 Other chest pain; G40.919 Epilepsy, unspecified, intractable, without status epilepticus; F17.200 Nicotine dependence, unspecified, uncomplicated; R00.1 Bradycardia, unspecified; R00.2 Palpitations; G47.00 Insomnia, unspecified; Z79.899 Other long term (current) drug therapy; Z98.890 Other specified postprocedural states
CPT/HCPCS: 36415; 70450; 71045; 72125; 74177; 80053; 80175; 80307; 81001; 81025; 82550; 83605; 83690; 83735; 83880; 84484; 85025; 85379; 87086; 87426; 93005; 96361; 96365; 96375; 99285; G0378; J1885; J1953; J2405; J7030; J7060; Q9967; U0003; U0005; G0379

== ENCOUNTER 2021-08-20 11:24 | Emergency (ER) | payer SELFPAY ==
[~2021-08-20] VITALS: Ht 157.5 cm; Wt 63.6 kg
[~2021-08-20 11:24] MED LIST changes: +FOLI0.4T5 PO
[2021-08-20 12:39] LABS: BASO # 0.1 x10^3/uL (0.0-0.2); BASO % 1 % (0-3); EOS # 0.1 x10^3/uL (0.0-0.7); EOS % 1 % (0-3); HEMATOCRIT 35.7 % (36.0-47.0); LYMPH # 1.1 x10^3/uL (1.0-4.8); LYMPH % 12 % (24-48); MEAN CORPUSCULAR HEMOGLOBIN 29 pg (25-35); MEAN CORPUSCULAR HGB CONC 34 g/dL (31-37); MEAN CORPUSCULAR VOLUME 87 fL (79-100); MONO # 0.6 x10^3/uL (0.0-1.1); MONO % 6 % (0-9); NEUT # 7.2 x10^3/uL (1.8-7.7); NEUT % 80 % (31-73); PLATELET COUNT 225 x10^3/uL (140-400); RED BLOOD COUNT 4.12 x10^6/uL (3.50-5.40); RED CELL DISTRIBUTION WIDTH 14.5 % (11.5-14.5); WHITE BLOOD COUNT 9.1 x10^3/uL (4.0-11.0)
[2021-08-20 12:53] LABS: CALCIUM 9.1 mg/dL (8.5-10.1); CREATININE 0.7 mg/dL (0.6-1.0); GFR 101.1; POTASSIUM 4.4 mmol/L (3.5-5.1)
[2021-08-20 12:59] LABS: ALBUMIN 3.8 g/dL (3.4-5.0); TOTAL BILIRUBIN 0.4 mg/dL (0.2-1.0); TOTAL PROTEIN 7.8 g/dL (6.4-8.2)
[2021-08-20 13:17] LABS: BARBITURATES NEG (NEG); BENZODIAZEPINES NEG (NEG); CANNABINOIDS POS (NEG); COCAINE NEG (NEG); METHADONE NEG (NEG); OPIATES NEG (NEG); PHENCYCLIDINE NEG (NEG)
[2021-08-20 13:21] LABS: AMPHETAMINE/METHAMPHETAMINE NEG (NEG)
[2021-08-20 13:22] LABS: BACTERIA,URINE FEW /HPF (0-FEW); RBC,URINE 0 /HPF (0-2)
[2021-08-20 13:33] VITALS: BP 111/59
[2021-08-20] MEDS ORDERED: OXCA300T19 PO (13:47)
[2021-08-20] MEDS ORDERED: LORA0.5T96 PO (13:47)
[2021-08-20] MEDS ORDERED: LAMO200T3 PO (13:47)
--- NOTE | 2021-08-20 13:48 | PHYS DOC ---
Past Medical History Past Medical History: Seizure Additional Past Medical Histor: HEART PALPITATIONS, BRADYCARDIA, INSOMNIA Past Surgical History: No Surgical History Additional Past Surgical Histo: ANKLE, NECK Smoking Status: Current Some Day Smoker Alcohol Use: None General Adult EDM: Chief Complaint: SEIZURE HPI: HPI: Patient is a 25 year old female with past medical history that includes epilepsy who presents with recent seizure. She states that her memory is fuzzy of the event, but that she either had a seizure last night or this morning. Prior to the seizure, she has not had 1 in several months. She states that she takes both Lamictal and Trileptal, but has been out of these medications for a week. Her neurologist works out of [facility], and she has contacted him for refills. She states that she called her pharmacy a couple days ago, and that they stated the prescriptions "weren't ready." She is seeking refills of her Lamictal, Trileptal and Ativan. She denies any head or neck trauma during her seizure. Patient has no pain or other complaints. Review of Systems: Review of Systems: Constitutional: Denies fever, chills or generalized weakness Eyes: Denies change in visual acuity, visual field deficits or discharge HENT: Denies ear pain, nasal congestion or sore throat Respiratory: Denies cough or shortness of breath Cardiovascular: Denies chest pain, palpitations or edema GI: Denies abdominal pain, nausea, vomiting, bloody stools or diarrhea : Denies dysuria or hematuria Musculoskeletal: Denies back pain or joint pain Integument: Denies rash or other skin lesion Neurologic: See HPI Heart Score: C/O Chest Pain: No Allergies: Allergies: Allergies Coded Allergies Type Severity Reaction Last Updated Verified No Known Drug Allergies 02/26/21 No Physical Exam: PE: Constitutional: Well developed, well nourished, no acute distress, non-toxic appearance, disheveled, smells of cat urine. HENT: Normocephalic, atraumatic, bilateral external ears normal, oropharynx moist, no oral lesions, nose normal. Eyes: PERRL, EOMI, conjunctiva normal, no discharge. Neck: Normal range of motion, no stridor. Cardiovascular: Heart regular rate and rhythm. No apparent murmurs, rubs or gallops. Lungs & Thorax: Equal thoracic expansion, no increased work of breathing. Skin: Warm, dry, no erythema, no rash. Back: No step-off, no tenderness. Extremities: No tenderness, no cyanosis, no clubbing, ROM intact, no edema. Neurologic: Alert and oriented x4, normal motor function, normal sensory function, steady and symmetrical upright gait, no focal deficits noted. Current Patient Data: Labs: Laboratory Tests Test 08/20/21 12:31 08/20/21 13:00 White Blood Count 9.1 x10^3/uL (4.0-11.0) Red Blood Count 4.12 x10^6/uL (3.50-5.40) Hemoglobin 12.0 g/dL (12.0-15.5) Hematocrit 35.7 % (36.0-47.0) L Mean Corpuscular Volume 87 fL (79-100) Mean Corpuscular Hemoglobin 29 pg (25-35) Mean Corpuscular Hemoglobin Concent 34 g/dL (31-37) Red Cell Distribution Width 14.5 % (11.5-14.5) Platelet Count 225 x10^3/uL (140-400) Neutrophils (%) (Auto) 80 % (31-73) H Lymphocytes (%) (Auto) 12 % (24-48) L Monocytes (%) (Auto) 6 % (0-9) Eosinophils (%) (Auto) 1 % (0-3) Basophils (%) (Auto) 1 % (0-3) Neutrophils # (Auto) 7.2 x10^3/uL (1.8-7.7) Lymphocytes # (Auto) 1.1 x10^3/uL (1.0-4.8) Monocytes # (Auto) 0.6 x10^3/uL (0.0-1.1) Eosinophils # (Auto) 0.1 x10^3/uL (0.0-0.7) Basophils # (Auto) 0.1 x10^3/uL (0.0-0.2) Sodium Level 138 mmol/L (136-145) Potassium Level 4.4 mmol/L (3.5-5.1) Chloride Level 103 mmol/L (98-107) Carbon Dioxide Level 24 mmol/L (21-32) Anion Gap 11 (6-14) Blood Urea Nitrogen 10 mg/dL (7-20) Creatinine 0.7 mg/dL (0.6-1.0) Estimated GFR (Cockcroft-Gault) 101.1 BUN/Creatinine Ratio 14 (6-20) Glucose Level 111 mg/dL (70-99) H Calcium Level 9.1 mg/dL (8.5-10.1) Total Bilirubin 0.4 mg/dL (0.2-1.0) Aspartate Amino Transferase (AST) 13 U/L (15-37) L Alanine Aminotransferase (ALT) 15 U/L (14-59) Alkaline Phosphatase 60 U/L (46-116) Total Protein 7.8 g/dL (6.4-8.2) Albumin 3.8 g/dL (3.4-5.0) Albumin/Globulin Ratio 1.0 (1.0-1.7) Urine Collection Type Void Urine Color (Auto) Light yellow Urine Turbidity Clear Urine pH (Auto) 8.0 (<5.0-8.0) Urine Specific [place] 1.020 (1.000-1.030) Urine Protein (Auto) 30 mg/dL (Negative) Urine Glucose (Auto)(UA) Negative mg/dL (Negative) Urine Ketones (Auto) Negative mg/dL (Negative) Urine Blood (Auto) Negative (Negative) Urine Nitrite Negative (Negative) Urine Bilirubin (Auto) Negative (Negative) Urine Urobilinogen (Auto) Normal mg/dL (Normal) Urine Leukocyte Esterase (Auto) Negative (Negative) Urine RBC 0 /HPF (0-2) Urine WBC 1-4 /HPF (0-4) Urine Squamous Epithelial Cells Mod /LPF Urine Bacteria Few /HPF (0-FEW) Urine Mucus Mod /LPF Urine Opiates Screen Neg (NEG) Urine Methadone Screen Neg (NEG) Urine Barbiturates Neg (NEG) Urine Phencyclidine Screen Neg (NEG) Urine Amphetamine/Methamphetamine Neg (NEG) Urine Benzodiazepines Screen Neg (NEG) Urine Cocaine Screen Neg (NEG) Urine Cannabinoids Screen Pos (NEG) Urine Ethyl Alcohol Neg (NEG) Laboratory Tests 08/20/21 12:31 Laboratory Tests 08/20/21 12:31 Vital Signs: Vital Signs Date Time Temp Pulse Resp B/P (MAP) Pulse Ox O2 Delivery O2 Flow Rate FiO2 08/20/21 13:33 73 18 111/59 (76) 100 08/20/21 13:03 73 16 117/63 (81) 99 Room Air 08/20/21 12:08 71 16 132/78 (96) 99 Room Air 08/20/21 11:37 98.2 80 16 129/73 (91) 98 Room Air 98.2 Course & Med Decision Making: Course & Med Decision Making Pertinent Labs and Imaging studies reviewed. (See chart for details) Patient presents with seizure and known history of epilepsy. Labs were drawn. Counseled patient on ensuring she has adequate refills of medication and keeping on track with her neurology appointments. She states she is not able to see her neurologist until November, so I did provide contact information for Dr. Scales, neurology here at [facility]. Work-up is reassuring. Medication levels pending, as they are send out test. Patient was given implicit instruction to follow-up with her neurologist. Return precautions were provided. Patient understands and is agreeable to discharge plan. Originally, patient presented with her aunt, who also checked in. After her aunt was seen in discharge, she became aggravated and irritable with emergency department staff. Patient's aunt was interfering with the patient's care, so she was asked to leave the department. Patient was provided with a cab pass to get home, since her aunt left. [email or web address] Disclaimer: [email or web address] Disclaimer: This electronic medical record was generated, in whole or in part, using a voice recognition dictation system. Departure Departure Impression: Primary Impression: Epilepsy Qualified Codes: G40.802 - Other epilepsy, not intractable, without status epilepticus Additional Impression: Seizure Disposition: 01 HOME / SELF CARE / HOMELESS Condition: STABLE Referrals: UNKNOWN PCP NAME (PCP) BLAZE MORSE MD Patient Instructions: Seizure, Adult, [id number] Additional Instructions: EMERGENCY DEPARTMENT GENERAL DISCHARGE INSTRUCTIONS Thank you for coming to [facility] Emergency Department (ED) today and trusting us with you care. We trust that you had a positive experience in our Emergency Department. If you wish to speak to the department management, you may call the director at . YOUR FOLLOW UP INSTRUCTIONS ARE FOLLOWS: 1. Follow up with your primary care doctor. If you do not have a primary doctor, please ask for a resource list of physicians or clinics that may be able to assist you with follow up care. 2. The emergency provider has interpreted your imaging studies, if any were ordered. The radiology senior contract specialist also reviewed them. If there is a change in the findings, you will be notified in 48 hours when at all possible. 3. If a lab test or culture has been done, your results will be reviewed and you will be notified if you need a change in treatment. 4. Follow instructions verbalized to you and refer to the printouts if needed. ADDITIONAL INSTRUCTIONS AND INFORMATION: 1. Your care today has been supervised by a physician who is specially trained in emergency care. Many problems require more than one evaluation for a complete diagnosis and treatment. We recommend that you schedule your follow up appointment as recommended to ensure complete treatment of you illness or injury. If you are unable to obtain follow up care and continue to have a problem, or if your condition worsens, we recommend that you return to the ED. 2. We are not able to safely determine your condition over the phone nor are we able to give sound medical advice over the phone. For these safety reasons, if you call for medical advice we will ask you to come to the ED for further evaluation. 3. If you have any questions regarding these discharge instructions please call the ED at . SAFETY INFORMATION: In the interest of safety, wellness, and injury prevention; we encourage you to wear your seat belt, if you smoke; quite smoking, and we encourage family to use a protective helmet for bicycling and other sporting events that present an increased risk for head injury. IF YOUR SYMPTOMS WORSEN OR NEW SYMPTOMS DEVELOP, OR YOU HAVE CONCERNS ABOUT YOUR CONDITION; OR IF YOUR CONDITION WORSENS WHILE YOU ARE WAITING FOR YOUR FOLLOW UP APPOINTMENT; EITHER CONTACT YOUR PRIMARY CARE DOCTOR, THE PHYSICIAN WHOSE NAME AND NUMBER YOU WERE GIVEN, OR RETURN TO THE ED IMMEDIATELY. Scripts Lorazepam (ATIVAN) 0.5 Mg Tablet 0.5 MG PO HS, #10 TAB Prov: LINDSAY NICOLE 08/20/21 Oxcarbazepine (OXCARBAZEPINE) 300 Mg Tablet 1 TAB PO BID for 30 Days, #60 TAB 0 Refills Prov: LINDSAY NICOLE 08/20/21 Lamotrigine (LAMICTAL) 200 Mg Tablet 1 TAB PO BID, #60 TAB 0 Refills Prov: LINDSAY NICOLE 08/20/21 LINDSAY NICOLE August 20, 2021 13:48
[2021-08-22 14:17] LABS: LAMOTRIGINE LEVEL 10.6 ug/mL (2.0-20.0)
== END 2021-08-20 13:51 | disposition home or self-care (01) ==
LOC: ER 11:24
DX: G40.909 Epilepsy, unspecified, not intractable, without status epilepticus (principal); F17.200 Nicotine dependence, unspecified, uncomplicated
CPT/HCPCS: 36415; 80053; 80175; 80183; 80307; 81001; 85025; 99283